=== PATIENT | male | born 1965 | race African-American/Black ===

== ENCOUNTER 2018-01-17 19:32 | Observation (INO) | payer OTHER ==
[2018-01-17] MEDS ORDERED: ONDANSETRON 4 MG/2 ML VIAL ONE (19:50)
[2018-01-17] MEDS ORDERED: Morphine 2 MG/2 ML SYR ONE (19:53)
[2018-01-17 20:36] LABS: Absolute Lymphocytes (CBC) 2.1 K/uL (0.7-4.9); Absolute Monocytes 0.5 K/uL (0.1-1.3); Absolute Neutrophil 4.4 K/uL (1.8-8.0); Basophils % 0.4 % (0-1.3); Eosinophils % 2.1 % (0-4.4); Hematocrit 37.6 % (39.6-49.0); Lymphocytes % 29.5 % (15.3-44.8); MCH 30.6 pg (27.0-35.0); MCV 91.9 fL (80-100); MPV 9.8 fL (7.6-11.3); Monocytes % 6.8 % (3.3-12.3); RBC Red Blood Cell Count 4.09 M/uL (4.33-5.43)
[2018-01-17 21:00] LABS: Protime INR 0.97
[2018-01-17 21:04] LABS: Bicarbonate 29 mEq/L (21-31); Glucose Level 168 mg/dL (65-120); Potassium 3.9 mEq/L (3.6-5.0); Sodium Level 132 mEq/L (135-145)
[2018-01-17 21:11] LABS: ALT/SGPT 11 IU/L (10-60); AST/SGOT 16 IU/L (10-42); Albumin 3.3 g/dL (3.2-5.5); Alkaline Phosphatase 39 IU/L (42-121); BUN Blood Urea Nitrogen 10 mg/dL (6-20); Bilirubin Direct 0.1 mg/dL (0-0.2); Bilirubin Total 0.4 mg/dL (0.3-1.2); Creatine Phosphokinase 188 IU/L (22-269); Magnesium 1.6 mg/dL (1.8-2.5); Protein, Total 5.9 g/dL (6.0-8.3)
[2018-01-17 21:13] LABS: CKMB Creatine Kinase MB 2.6 ng/ml (0.3-4.0)
--- NOTE | 2018-01-17 21:15 | RAD REPORT ---
EXAM DESCRIPTION: Te[facility] Single View01/17/2018 8:58 pm CLINICAL HISTORY: Chest pain COMPARISON: none FINDINGS: The lungs appear clear of acute infiltrate. The heart is upper limits normal size IMPRESSION: No acute abnormalities displayed
[2018-01-17] MEDS ORDERED: Magnesium Sulfate 2gm IVPB 2 G/50 ML BAG IV ONE (21:25)
[2018-01-17] MEDS ORDERED: ACETAMINOPHEN 500 MG TAB PO PRN (22:04)
[2018-01-17] MEDS ORDERED: ALPRAZOLAM 0.25 MG TABLET PO PRN (22:04)
[2018-01-17] MEDS ORDERED: MORPHINE 4 MG/ML SYR IV PRN (22:04)
--- NOTE | 2018-01-17 22:07 | EDPHYS ---
Physician Documentation [facility] Name: Erich Houser Jr Age: 52 yrs Sex: Male : 1965 Arrival Date: 01/17/2018 Time: 19:35 Bed 24 Private MD: ED Physician Dharmesh Zaldivar HPI: 01/17 19:45 This 52 yrs old Black Male presents to ER via EMS with complaints of Chest Pain > 30 cp y/o. 19:45 The patient or guardian reports chest pain that is located primarily in the anterior cp chest wall, left. Onset: "little while ago". The pain radiates to the left arm. The chest pain is described as sharp. 19:45 Associated signs and symptoms: Pertinent negatives: abdominal pain, cough, diaphoresis, cp lower extremity pain, lower extremity swelling. 19:45 Duration: The patient or guardian reports a single episode, that is still ongoing. cp Historical: - Allergies: 19:40 Hydrochlorothiazide; lk1 - PMHx: 19:40 CONSTIPATION - CHRONIC; Depression; Diabetes - NIDDM; FACET ARTHRITIS; gingivitis; lk1 Hypertension; IMPULSE CONTROL DISORDER; LEGG-PERTHES DS; MODERATE MR; SCHIZOTYPAL PERSONALITY DISORDER; Seizures; - Immunization history:: Adult Immunizations up to date. - Social history:: Smoking status: Patient/guardian denies using tobacco. ROS: 19:50 Constitutional: Negative for body aches, chills, fever, poor PO intake. cp 19:50 Eyes: Negative for injury, pain, redness, and discharge. cp 19:50 ENT: Negative for drainage from ear(s), ear pain, sore throat, difficulty swallowing, difficulty handling secretions. 19:50 Cardiovascular: Positive for chest pain, Negative for edema, palpitations. 19:50 Respiratory: Negative for cough, shortness of breath, wheezing. 19:50 Abdomen/GI: Negative for abdominal pain, vomiting, diarrhea, constipation, black/tarry stool, rectal bleeding. 19:50 Back: Negative for pain at rest, pain with movement, radiated pain. 19:50 Skin: Negative for cellulitis, rash. 19:50 Neuro: Negative for altered mental status, headache, weakness. 19:50 All other systems are negative. Exam: 20:00 Constitutional: The patient appears in no acute distress, alert, awake, cp non-diaphoretic, non-toxic, well developed, well nourished, obese. 20:00 Head/Face: Normocephalic, atraumatic. cp 20:00 Eyes: Pupils equal round and reactive to light, extra-ocular motions intact. Lids and lashes normal. Conjunctiva and sclera are non-icteric and not injected. Cornea within normal limits. Periorbital areas with no swelling, redness, or edema. ENT: Nares patent. No nasal discharge, no septal abnormalities noted. Tympanic membranes are normal and external auditory canals are clear. Oropharynx with no redness, swelling, or masses, exudates, or evidence of obstruction, uvula midline. Mucous membranes moist. Neck: Trachea midline, no thyromegaly or masses palpated, and no cervical lymphadenopathy. Supple, full range of motion without nuchal rigidity, or vertebral point tenderness. No Meningismus. Chest/axilla: Normal chest wall appearance and motion. Nontender with no deformity. No lesions are appreciated. 20:00 Cardiovascular: Rate: normal, Rhythm: regular, Pulses: Pulses are 2+ in right radial artery and left radial artery. Edema: is not appreciated, JVD: is not appreciated. 20:00 Respiratory: the patient does not display signs of respiratory distress, Respirations: normal, no use of accessory muscles, no retractions, no splinting, no tachypnea, labored breathing, is not present, Breath sounds: are clear throughout, no decreased breath sounds, no stridor, no wheezing. 20:00 Abdomen/GI: Inspection: obese Bowel sounds: active, all quadrants, Palpation: abdomen is soft and non-tender, in all quadrants, rebound tenderness, is not appreciated, voluntary guarding, is not appreciated, involuntary guarding, is not appreciated. 20:00 Back: pain, is absent, ROM is normal. 20:00 Skin: cellulitis, is not appreciated, no rash present. 20:00 Neuro: Orientation: to person, place \\T\\ time. Mentation: lucid, able to follow commands, Cerebellar function: is grossly normal, Motor: moves all fours, strength is normal. 21:59 ECG was reviewed by the Attending Physician. cp Vital Signs: 19:42 BP 146 / 80; Pulse 85; Resp 18; Temp 98.2(O); Pulse Ox 97% on R/A; Weight 86.64 kg (R); lk1 Pain 4/10; 20:30 BP 175 / 89; Pulse 76; Resp 18; Pulse Ox 95% on R/A; lk1 21:00 BP 167 / 71; Pulse 75; Resp 18; Pulse Ox 97% on R/A; lk1 21:30 BP 158 / 95; Pulse 76; Resp 18; Pulse Ox 95% on R/A; lk1 22:00 BP 159 / 85; Pulse 79; Resp 16; Pulse Ox 96% on R/A; lk1 22:30 BP 165 / 74; Pulse 81; Resp 16; Pulse Ox 94% on R/A; lk1 23:00 BP 170 / 77; Pulse 80; Resp 16; Pulse Ox 93% on R/A; lk1 23:48 BP 121 / 77; Pulse 78; Resp 16; Pulse Ox 95% on R/A; lk1 23:00 sleeping lk1 MDM: 19:38 Patient medically screened. 20:00 Differential diagnosis: abnormal EKG, acute myocardial infarction, gastroesophageal cp reflux disease (GERD), pulmonary embolus, stable angina, thoracic aortic disection, unstable angina. 21:00 The patient was not given aspirin in the Emergency Department. Administered by EMS. 21:35 Data reviewed: vital signs, nurses notes, lab test result(s), radiologic studies, plain cp films, and as a result, I will admit patient. 21:43 Physician consultation: Maria G Wright MD was called at 21:38, was contacted at 21:38, regarding admission, to the telemetry unit. patient's condition. 01/17 19:46 Order name: Basic Metabolic Panel; Complete Time: 21:22 cp 01/17 21:22 Interpretation: Normal except: NA 132; CL 100; GLUC 168. cp 01/17 19:46 Order name: BNP; Complete Time: 21:22 cp 01/17 19:46 Order name: CBC with Diff; Complete Time: 20:47 cp 01/17 20:47 Interpretation: Normal except: RBC 4.09; HGB 12.5; HCT 37.6; RDW 15.7. cp 01/17 19:46 Order name: Ckmb; Complete Time: 21:22 cp 01/17 19:46 Order name: CPK; Complete Time: 21:22 cp 01/17 19:46 Order name: LFT's; Complete Time: 21:22 cp 01/17 19:46 Order name: Magnesium; Complete Time: 21:22 cp 01/17 19:46 Order name: PT-INR; Complete Time: 21:22 cp 01/17 19:46 Order name: Ptt, Activated; Complete Time: 21:22 cp 01/17 19:46 Order name: Troponin (emerg Dept Use Only); Complete Time: 21:22 cp 01/17 22:07 Order name: Lipid Profile [facility] 01/17 22:07 Order name: Lipid Profile [facility] 01/17 22:07 Order name: Troponin I [facility] 01/17 22:07 Order name: Troponin I [facility] 01/17 19:46 Order name: XRAY Chest (1 view); Complete Time: 21:22 cp 01/17 19:46 Order name: EKG; Complete Time: 20:07 cp 01/17 19:46 Order name: Cardiac monitoring; Complete Time: 21:39 cp 01/17 19:46 Order name: EKG - Nurse/Tech; Complete Time: 00:07 cp 01/17 22:07 Order name: Echo with Doppler [facility] 01/17 22:07 Order name: Troponin I [facility] 01/17 22:07 Order name: EKG Electrocardiogram [facility] 01/17 22:07 Order name: EKG Electrocardiogram [facility] 01/17 22:07 Order name: EKG Electrocardiogram [facility] 01/17 22:07 Order name: EKG Electrocardiogram [facility] 01/17 23:58 Order name: Urine Dipstick--Ancillary (enter results) 1 01/17 19:46 Order name: IV Saline Lock; Complete Time: 21:39 cp 01/17 19:46 Order name: Labs collected and sent; Complete Time: 21:39 cp 01/17 19:46 Order name: O2 Per Protocol; Complete Time: 21:39 cp 01/17 19:46 Order name: O2 Sat Monitoring; Complete Time: 21:39 cp 01/17 19:46 Order name: Urine Dipstick-Ancillary (obtain specimen); Complete Time: 23:56 cp EC:59 Rate is 80 beats/min. Rhythm is regular. WI interval is normal. QRS interval is normal. cp QT interval is normal. No ST changes noted. Interpreted by me. Reviewed by me. Administered Medications: 20:26 Drug: Zofran 4 mg Route: IVP; Site: right antecubital; lk1 21:00 Follow up: Response: No adverse reaction; Marked relief of symptoms; Nausea is decreasedlk1 20:27 Drug: morphine 2 mg Route: IVP; Site: right antecubital; lk1 21:00 Follow up: Response: No adverse reaction; Marked relief of symptoms; Pain is decreased lk1 21:30 Drug: Magnesium Sulfate 2 grams Route: IVPB; Infused Over: 2 hrs; Site: right lk1 antecubital; 22:30 Follow up: Response: No adverse reaction; IV Status: Completed infusion lk1 23:00 Drug: Lovenox 40 mg Route: Sub-Q; Site: right lower abdomen; lk1 23:30 Follow up: Response: No adverse reaction lk1 23:00 Drug: Metoprolol 25 mg Route: PO; lk1 23:55 Follow up: Response: No adverse reaction; Blood pressure is lowered lk1 Disposition: 01/18 07:59 Co-signature as Attending Physician, Dharmesh Zaldivar MD I agree with the assessment and [facility] plan of care. Disposition: 01/17/18 22:06 Hospitalization ordered by Maria G Wright for Observation. Preliminary diagnosis is Chest pain, unspecified. - Bed requested for Telemetry/MedSurg (observation). - Status is Observation. lk1 - Condition is Stable. - Problem is new. - Symptoms have improved. UTI on Admission? No Signatures: Dispatcher [employer] EDSherley Madrid, Dharmesh Multani RN, MD MD cha Page, Corey, PA PA cp Kluge, Leah, RN RN lk1
--- NOTE | 2018-01-17 22:07 | ER ---
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 Transition of care: patient was not received from another setting of care. Onset of symptoms was January 17, 2018 at 19:00. Initial Sepsis Screen: Does the patient meet any 2 criteria? No. Patient's initial sepsis screen is negative. Does the patient have a suspected source of infection? No. Patient's initial sepsis screen is negative. Care prior to arrival: Medication(s) given: ASA, 325 mg, x 1, IV initiated. 20 GA, in the right antecubital area, Glucose check: 148. 19:37 Method Of Arrival: EMS: [facility] lk1 19:37 Acuity: JIGNESH 3 lk1 Triage Assessment: 19:40 General: Appears in no apparent distress. Behavior is calm, cooperative, appropriate lk1 for age. Pain: Complains of pain in chest Pain radiates to left arm Unable to use pain scale. Does not appear to understand pain scale. FLACC scale score is 4 out of 10. EENT: No signs and/or symptoms were reported regarding the EENT system. Neuro: Cardiovascular: Heart tones S1 S2 present Capillary refill is brisk Patient's skin is warm and dry. Respiratory: Airway is patent Respiratory effort is even, unlabored, Respiratory pattern is regular, symmetrical, Breath sounds are clear bilaterally. GI: Abdomen is round non-distended, Bowel sounds present X 4 quads. Patient currently denies diarrhea, nausea, vomiting. : No signs and/or symptoms were reported regarding the genitourinary system. Derm: No signs and/or symptoms reported regarding the dermatologic system. Musculoskeletal: No signs and/or symptoms reported regarding the musculoskeletal system. Historical: - Allergies: 19:40 Hydrochlorothiazide; lk1 - PMHx: 19:40 CONSTIPATION - CHRONIC; Depression; Diabetes - NIDDM; FACET ARTHRITIS; gingivitis; lk1 Hypertension; IMPULSE CONTROL DISORDER; LEGG-PERTHES DS; MODERATE MR; SCHIZOTYPAL PERSONALITY DISORDER; Seizures; - Immunization history:: Adult Immunizations up to date. - Social history:: Smoking status: Patient/guardian denies using tobacco. Screenin:18 Abuse screen: Denies threats or abuse. Denies injuries from another. Nutritional lk1 screening: No deficits noted. Tuberculosis screening: No symptoms or risk factors identified. Fall Risk Total Singh Fall Scale indicates Low Risk Score (25-44 pts). Fall prevention measures have been instituted. Side Rails Up X 2 Placed close to Nursing Station Frequent Obs/Assesments occuring Family Present and informed to notify staff if they need to leave bedside As available Patient and Family Educated on Fall Prevention Program and strategies. Assessment: 20:30 Reassessment: Patient and/or family updated on plan of care and expected duration. Pain lk1 level reassessed. Patient is alert, oriented x 3, equal unlabored respirations, skin warm/dry/pink. Patient states feeling better. Patient states symptoms have improved. Pain: Denies pain. 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 Vital Signs: 19:42 BP 146 / 80; Pulse 85; Resp 18; Temp 98.2(O); Pulse Ox 97% on R/A; Weight 86.64 kg (R); lk1 Pain 4/10; 20:30 BP 175 / 89; Pulse 76; Resp 18; Pulse Ox 95% on R/A; lk1 21:00 BP 167 / 71; Pulse 75; Resp 18; Pulse Ox 97% on R/A; lk1 21:30 BP 158 / 95; Pulse 76; Resp 18; Pulse Ox 95% on R/A; lk1 22:00 BP 159 / 85; Pulse 79; Resp 16; Pulse Ox 96% on R/A; lk1 22:30 BP 165 / 74; Pulse 81; Resp 16; Pulse Ox 94% on R/A; lk1 23:00 BP 170 / 77; Pulse 80; Resp 16; Pulse Ox 93% on R/A; lk1 23:48 BP 121 / 77; Pulse 78; Resp 16; Pulse Ox 95% on R/A; lk1 23:00 sleeping lk1 ED Course: 19:35 Patient arrived in ED. em1 19:36 Kristal Dyer, ELLIE is Primary Nurse. lk1 19:37 Dharmesh Munoz PA is PHCP. cp 19:37 Dharmesh Zaldivar MD is Attending Physician. cp 19:39 Triage completed. lk1 19:39 Maintain EMS IV. Dressing intact. Good blood return noted. Site clean \T\ dry. Gauge \T\ lk 1 site: 20G in right AC. 19:46 Arm band placed on right wrist. lk1 20:58 XRAY Chest (1 view) In Process Unspecified. EDMS 22:05 Maria G Wright MD is Hospitalizing Provider. cp 22:08 EKG done, by ED staff, reviewed by Dharmesh LE. dh3 23:58 No provider procedures requiring assistance completed. Patient admitted, IV remains in lk1 place. No redness/swelling at site. Patient maintains SpO2 saturation greater than 95% on room air. 01/18 00:00 Patient has correct armband on for positive identification. Placed in gown. Bed in low lk1 position. 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 Administered Medications: 01/17 20:26 Drug: Zofran 4 mg Route: IVP; Site: right antecubital; lk1 21:00 Follow up: Response: No adverse reaction; Marked relief of symptoms; Nausea is decreasedk1 20:27 Drug: morphine 2 mg Route: IVP; Site: right antecubital; lk1 21:00 Follow up: Response: No adverse reaction; Marked relief of symptoms; Pain is decreased lk1 21:30 Drug: Magnesium Sulfate 2 grams Route: IVPB; Infused Over: 2 hrs; Site: right lk1 antecubital; 22:30 Follow up: Response: No adverse reaction; IV Status: Completed infusion lk1 23:00 Drug: Lovenox 40 mg Route: Sub-Q; Site: right lower abdomen; lk1 23:30 Follow up: Response: No adverse reaction lk1 23:00 Drug: Metoprolol 25 mg Route: PO; lk1 23:55 Follow up: Response: No adverse reaction; Blood pressure is lowered lk1 Outcome: 22:06 Decision to Hospitalize by Provider. cp 23:58 Admitted to Med/surg accompanied by tech, via wheelchair, room 232, with chart, Report lk1 called to RN 23:58 Condition: good 23:58 Discharge instructions given to patient, significant other, Instructed on the need for admit, Demonstrated understanding of instructions. 01/18 00:07 Patient left the ED. lk1 Signatures: Dispatcher [employer] Haile Claudio em1 Dharmesh Munoz PA PA cp Kluge, Leah, RN RN lk1 Yoly Alarcon 3
[2018-01-17] MEDS ORDERED: METOPROLOL TAR 25 MG TAB ONE (23:11)
[2018-01-17] MEDS ORDERED: ENOXAPARIN 40 MG/0.4 ML SQ ONE (23:12)
[2018-01-18 00:15] LABS: Urine Blood NEGATIVE (NEG); Urine Glucose TRACE (NEG); Urine Protein NEGATIVE (NEG); Urine Specific Gravity 1.015 (1.005-1.030)
[2018-01-18] MEDS ORDERED: Morphine 2 MG/2 ML SYR IV PRN (07:18)
[2018-01-18] MEDS ORDERED: PNEUMOCOCCAL VACCINE 0.5 ML IMVAC ONE (08:00)
--- NOTE | 2018-01-18 08:56 | P.HP ---
Certification for Inpatient Patient admitted to: Observation With expected LOS: <2 Midnights Patient will require the following post-hospital care: None Practitioner: I am a practitioner with admitting privileges, knowledge of patient current condition, hospital course, and medical plan of care. Services: Services provided to patient in accordance with Admission requirements found in Title 42 Section 412.3 of the Code of Federal Regulations Patient History Date of Service: 01/17/18 Reason for admission: Chest pain History of Present Illness: Patient is a 52yo who was admitted to the hospital with chest pain that comes and goes. Patient has a learning disability. Patient is not able to give me much history. He does say he has been having chest pain which is sharp. There is no radiation. Patient was admitted to the hospital for further evaluation to be ruled out for acute coronary syndrome as he has many risk factors. Patient stays at a daycare call [facility]. Allergies hydrochlorothiazide Allergy (Unverified 01/16/16 00:13) Unknown Home Medications: Benztropine Mesylate 2 mg PO BID 01/18/18 Cholecalciferol (Vitamin D3) [Vitamin D3] 5,000 units PO DAILY 01/18/18 Divalproex Sodium [Depakote] 500 mg PO BID 01/18/18 Docusate [Colace Cap*] 100 mg PO DAILY 01/18/18 Doxycycline Hyclate [Targadox] 20 mg PO DAILY 01/18/18 Iloperidone [Fanapt] 8 mg PO BID 01/18/18 Lisinopril [Prinivil] 20 mg PO DAILY 01/18/18 Metformin ER [Glucophage ER*] 500 mg PO DAILY WITH BREAKFAST 01/18/18 Metoprolol Succinate [Toprol Xl*] 50 mg PO DAILY 01/18/18 Oxcarbazepine [Trileptal] 300 mg PO [id number] 01/18/18 Oxcarbazepine [Trileptal] 600 mg PO BEDTIME 01/18/18 Propranolol [Inderal*] 20 mg PO BID 01/18/18 Risperidone [Risperdal] 3 mg PO BID 01/18/18 Simvastatin 40 mg PO BEDTIME 01/18/18 - Past Medical/Surgical History Has patient received pneumonia vaccine in the past: No Diabetic: No -: Hypertension -: Diabetes type 2 -: Seizure disorder Past Surgical History: Patient denies surgical history - Family History Father History Unknown: Yes Notes: pt not good historian Mother History Unknown: Yes - Social History Smoking Status: Never smoker Alcohol use: No CD- Drugs: No Caffeine use: Yes Place of Residence: Home Review of Systems 10-point ROS is otherwise unremarkable Physical Examination - Vital Signs Temperature: 97.8 F Blood Pressure: 155/78 Pulse: 71 Respirations: 18 Pulse Ox (%): 95 - Physical Exam General: Alert, In no apparent distress, Oriented x3 HEENT: Atraumatic, PERRLA, Mucous membr. moist/pink, EOMI, Sclerae nonicteric Neck: Supple, 2+ carotid pulse no bruit, No LAD, Without JVD or thyroid abnormality Respiratory: Clear to auscultation bilaterally, Normal air movement Cardiovascular: Regular rate/rhythm, Normal S1 S2, No murmurs Gastrointestinal: Normal bowel sounds, Soft and benign, Non-distended, No tenderness Musculoskeletal: No clubbing, No swelling, No tenderness Integumentary: No rashes Neurological: Normal gait, Normal speech, Normal strength at 5/5 x4 extr, Normal tone, Sensation intact, Cranial nerves 3-12 intact, Normal affect Lymphatics: No axilla or inguinal lymphadenopathy - Studies Laboratory Data (last 24 hrs) 01/17/18 20:26: PT 11.4, INR 0.97, APTT 25.5 01/17/18 20:26: WBC 7.2, Hgb 12.5 L, Hct 37.6 L, Plt Count 210 01/17/18 20:26: B-Natriuretic Peptide 20 01/17/18 20:26: Sodium 132 L, Potassium 3.9, BUN 10, Creatinine 0.68, Glucose 168 H, Magnesium 1.6 L, Total Bilirubin 0.4, AST 16, ALT 11, Alkaline Phosphatase 39 L Assessment & Plan - Problems (Diagnosis) (1) Chest pain, rule out acute myocardial infarction Current Visit: Yes Status: Acute (2) Learning disability Current Visit: Yes Status: Acute (3) Diabetes type 2, controlled Current Visit: Yes Status: Acute (4) Hypertension Current Visit: Yes Status: Acute - Plan 1. Serial troponins and EKG 2. Cardiology consultation 3. Echocardiogram 4. Anti-platelet therapy, anti coagulation, beta-jean-pierre, statin, and O2 as needed 5. IV morphine for pain 6. Nitro p.r.n. Discharge Plan: Home Plan to discharge in: 24 Hours - Advance Directives Does patient have a Living Will: No Does patient have a Durable POA for Healthcare: No - Code Status/Comfort Care Code Status Assessed: Yes Code Status: Full Code Critical Care: No Time Spent Managing PTS Care (In Minutes): 45
[2018-01-18] MEDS ORDERED: METOPROLOL TAR 50 MG TAB PO SCH (09:00)
[2018-01-18] MEDS ORDERED: ENOXAPARIN 40 MG/0.4 ML SQ SCH (09:00)
[2018-01-18] MEDS ORDERED: ASPIRIN EC 81 MG TAB PO SCH (09:00)
[2018-01-18] MEDS ORDERED: LISINOPRIL 10 MG TAB PO SCH (09:00)
--- NOTE | 2018-01-18 13:06 | P.SSS ---
Patient History Date of Service: 01/18/18 Reason for admission: Chest pain History of Present Illness: Patient is a 52yo who was admitted to the hospital with chest pain that comes and goes. Patient has a learning disability. Patient is not able to give me much history. He does say he has been having chest pain which is sharp. There is no radiation. Patient was admitted to the hospital for further evaluation to be ruled out for acute coronary syndrome as he has many risk factors. Patient stays at a daycare call [facility]. Allergies hydrochlorothiazide Allergy (Unverified 01/16/16 00:13) Unknown Home Medications: Benztropine Mesylate 2 mg PO BID 01/18/18 Cholecalciferol (Vitamin D3) [Vitamin D3] 5,000 units PO DAILY 01/18/18 Divalproex Sodium [Depakote] 500 mg PO BID 01/18/18 Docusate [Colace Cap*] 100 mg PO DAILY 01/18/18 Doxycycline Hyclate [Targadox] 20 mg PO DAILY 01/18/18 Iloperidone [Fanapt] 8 mg PO BID 01/18/18 Lisinopril [Prinivil] 20 mg PO DAILY 01/18/18 Metformin ER [Glucophage ER*] 500 mg PO DAILY WITH BREAKFAST 01/18/18 Metoprolol Succinate [Toprol Xl*] 50 mg PO DAILY 01/18/18 Oxcarbazepine [Trileptal] 300 mg PO [id number] 01/18/18 Oxcarbazepine [Trileptal] 600 mg PO BEDTIME 01/18/18 Propranolol [Inderal*] 20 mg PO BID 01/18/18 Risperidone [Risperdal] 3 mg PO BID 01/18/18 Simvastatin 40 mg PO BEDTIME 01/18/18 - Past Medical/Surgical History Has patient received pneumonia vaccine in the past: No Diabetic: No -: Hypertension -: Diabetes type 2 -: Seizure disorder - Family History Father History Unknown: Yes Notes: pt not good historian Mother History Unknown: Yes - Social History Smoking Status: Never smoker Alcohol use: No CD- Drugs: No Caffeine use: Yes Place of Residence: Home Review of Systems General: As per HPI Physical Examination - Vital Signs Temperature: 97.8 F Blood Pressure: 177/110 Pulse: 101 Respirations: 18 Pulse Ox (%): 95 - Physical Exam General: Alert, In no apparent distress HEENT: Atraumatic Neck: Supple Respiratory: Clear to auscultation bilaterally, Normal air movement Cardiovascular: Regular rate/rhythm, Normal S1 S2 Gastrointestinal: Normal bowel sounds, No tenderness Musculoskeletal: No tenderness Integumentary: No rashes Neurological: Normal gait, Normal speech, Normal strength at 5/5 x4 extr, Normal tone, Normal affect Lymphatics: No axilla or inguinal lymphadenopathy - Studies Laboratory Data (last 24 hrs) 01/17/18 20:26: PT 11.4, INR 0.97, APTT 25.5 01/17/18 20:26: WBC 7.2, Hgb 12.5 L, Hct 37.6 L, Plt Count 210 01/17/18 20:26: B-Natriuretic Peptide 20 01/17/18 20:26: Sodium 132 L, Potassium 3.9, BUN 10, Creatinine 0.68, Glucose 168 H, Magnesium 1.6 L, Total Bilirubin 0.4, AST 16, ALT 11, Alkaline Phosphatase 39 L - Diagnosis (Problem(s)) (1) Chest pain, rule out acute myocardial infarction Onset Date: 01/18/18 Current Visit: Yes Status: Ruled-out Plan: Chest Pain. Troponin x 3 negative. ECHO WNL. -Cardiology consulted. [facility] medical mgmt. -DC home now (2) Diabetes type 2, controlled Onset Date: 01/18/18 Current Visit: Yes Status: Acute (3) Hypertension Onset Date: 01/18/18 Current Visit: Yes Status: Chronic Qualifiers: Hypertension type: essential hypertension Qualified Code(s): I10 - Essential (primary) hypertension (4) Learning disability Onset Date: 01/18/18 Current Visit: Yes Status: Chronic - Disposition Disposition: ROUTINE DISCHARGE Condition: GOOD Diet: Regular Activity: Ad zaid
--- NOTE | 2018-01-18 15:40 | EKG ---
Test Date: 2018-01-18 Test Time: 09:24:48 Assistant Professor Of Music: SYDNEY MEASUREMENT RESULTS: Intervals: Rate: 80 TN: 140 QRSD: 88 QT: 336 QTc: 387 [place]: P: 60 TN: 140 QRS: 47 T: 40 INTERPRETIVE STATEMENTS: Normal sinus rhythm Nonspecific T wave abnormality Abnormal ECG Compared to ECG 01/17/2018 21:53:51 No significant changes Electronically Signed On 01-18-18 15:37:43 CDT by Rex Silva
--- NOTE | 2018-01-18 15:41 | EKG ---
Test Date: 2018-01-17 Test Time: 21:53:51 Registered Massage Therapist: LEIDA MEASUREMENT RESULTS: Intervals: Rate: 80 MT: 142 QRSD: 90 QT: 352 QTc: 405 [place]: P: 58 MT: 142 QRS: 53 T: 69 INTERPRETIVE STATEMENTS: Normal sinus rhythm Nonspecific T wave abnormality Abnormal ECG Compared to ECG 07/13/2009 21:17:40 Myocardial infarct finding no longer present T-wave abnormality still present Electronically Signed On 01-18-18 15:37:54 CDT by Rex Silva
--- NOTE | 2018-01-18 16:37 | ECHO ---
HEIGHT: 5 ft 3 in WEIGHT: 214 lb 11.2 oz DATE OF STUDY: 01/18/[address]: Maria G Wright MD 2-DIMENSIONAL: YES M.MODE: YES DOPPLER: YES COLOR FLOW: YES TDS: PORTABLE: DEFINITY: BUBBLE STUDY: DIAGNOSIS: CHEST PAIN CARDIAC HISTORY: CATHERIZATION: NO SURGERY: NO PROSTHETIC VALVE: NO PACEMAKER: NO MEASUREMENTS (cm) DIASTOLIC (NORMALS) SYSTOLIC (NORMALS) IVSd 1.0 (0.6-1.2) LA Diam 3.5 (1.9-4.0) LVEF 59% LVIDd 4.2 (3.5-5.7) LVIDs 2.9 (2.0-3.5) %FS 31% LVPWd 0.9 (0.6-1.2) Ao Diam 3.0 (2.0-3.7) 2 DIMENSIONAL ASSESSMENT: RIGHT ATRIUM: NORMAL LEFT ATRIUM: NORMAL RIGHT VENTRICLE: NORMAL LEFT VENTRICLE: NORMAL TRICUSPID VALVE: NORMAL MITRAL VALVE: NORMAL PULMONIC VALVE: NORMAL AORTIC VALVE: NORMAL PERICARDIAL EFFUSION: NONE AORTIC ROOT: NORMAL LEFT VENTRICULAR WALL MOTION: NORMAL DOPPLER/COLOR FLOW: NORMAL COMMENTS: NORMAL 2-DIMENSIONAL ECHOCARDIOGRAM WITH DOPPLER. NO WALL MOTION ABNORMALITY. NO EFFUSION. TECHNOLOGIST: PANFILO AWAD
[2018-01-18] MEDS ORDERED: ATORVASTATIN 20 MG TAB PO SCH (21:00)
[2018-01-18] MEDS ORDERED: DIVALPROEX DR 500MG TAB PO SCH (21:00)
[2018-01-18] MEDS ORDERED: RISPERIDONE 1 MG TABLET PO SCH (21:00)
[2018-01-18] MEDS ORDERED: PROPRANOLOL HCL 40 MG TAB PO SCH (21:00)
[2018-01-18] MEDS ORDERED: ILOPERIDONE 8 MG PO SCH (21:00)
[2018-01-19] MEDS ORDERED: METOPROLOL XL 50 MG TAB PO SCH (09:00)
[2018-01-19] MEDS ORDERED: VITAMIN D 5,000 UNIT CAP PO SCH (09:00)
[2018-01-19] MEDS ORDERED: DOCUSATE NA 100 MG CAP PO SCH (09:00)
[2018-01-19] MEDS ORDERED: LISINOPRIL 20 MG TAB PO SCH (09:00)
--- NOTE | 2018-01-19 10:58 | CON ---
Date of Consultation: 01/18/2018 The patient admitted on 01/17/2018. I saw the patient on 01/18/2018. Reason For Consultation: Chest pain. Additional Admitting Physician: Dr. Hope. History Of Present Illness: Mr. Houser is a 52-year-old black male without any significant cardiac his tory. He has a history of schizophrenia, depression, seizure disorder, and diabetes. He came in wit h stabbing kind of chest pain over the left chest, worse with breathing, radiated to the back. No na usea, vomiting, diaphoresis, PND, orthopnea, pedal edema, palpitations, or syncope. By the time I sa w him, he had had a normal EKG, normal chest x-ray, normal troponin, CPKs and MBs. His blood glucose is 168 and mag was 1.6 and he was asymptomatic by the time I saw him. Echocardiography that was don e by the time I saw him showed normal wall motion without any effusion. He has a normal ejection fra ction. Past Medical History: As stated above. Allergies: HE IS ALLERGIC TO HYDROCHLOROTHIAZIDE. Review of Systems: Negative. Social History: Positive for schizophrenia and depression and seizure disorder. [facility] facility that handles [facility]. Denies any tobacco, alcohol, or drug abuse. Physical Examination: Vital Signs: Stable. He was afebrile. HEENT: Negative. Neck: Supple without any bruit, lymphadenopathy, JVD, or thyromegaly. Chest: Clear to auscultation and percussion. Cardiac: Reveals a regular rhythm and rate without any murmurs, gallops, or rubs. Abdomen: Benign. Extremities: Revealed no clubbing, cyanosis, or edema. Diagnostic Data: As stated earlier. Impression And Plan: Atypical chest pain, most likely pleuritic. Normal echocardiogram. Normal lab oratory evaluation, chest x-ray, and EKG. The patient is pain-free right now. I feel comfortable wi th him going home. If his symptoms reoccur, we can certainly consider doing a stress test at that po int. His diabetes is fairly well controlled. He is normotensive at this point. I will discuss the case further with Dr. Hope or his cross-cover. GERA/LUZ MARIA Voice ID: [id number] Report ID: [id number]
== END 2018-01-18 17:42 | disposition home or self-care (01) ==
LOC: ER 19:32 → ERHOLD 22:06 → 2ND 23:29
PROVIDERS: ADMIT Hospitalist; ATTEND Hospitalist
DX: R07.9 Chest pain, unspecified (principal); I10 Essential (primary) hypertension; E11.9 Type 2 diabetes mellitus without complications; G40.909 Epilepsy, unspecified, not intractable, without status epilepticus; F81.9 Developmental disorder of scholastic skills, unspecified
CPT/HCPCS: 36415; 71045; 80048; 80061; 80076; 81003; 82550; 82553; 83735; 83880; 84484; 85025; 85610; 85730; 90670; 93005; 93306; 96365; 96372; 96375; 99285; G0378; J1650; J2270; J2405; J3475

== ENCOUNTER 2018-10-07 14:23 | Emergency (ER) | payer OTHER ==
--- OUTSIDE RECORDS SUMMARY | 2018-10-07 14:25 | XMS REPORT ---
:1965 [facility] Address [address] [place] [address] Care Team Providers Name Role Phone Unavailable Unavailable Unavailable Problems This patient has no known problems. Allergies, Adverse Reactions, Alerts This patient has no known allergies or adverse reactions. Medications This patient has no known medications.
--- NOTE | 2018-10-07 15:54 | RAD REPORT ---
EXAM DESCRIPTION: RAD - Chest Single View - 10/07/2018 3:40 pm CLINICAL HISTORY: listlessness Chest pain. COMPARISON: Chest Single View dated 01/17/2018; Chest Single View dated 09/14/2017 FINDINGS: Portable technique limits examination quality. The lungs are grossly clear. The heart is normal in size. No displaced fractures. IMPRESSION: No acute intrathoracic process suspected.
[2018-10-07 16:15] LABS: Absolute Lymphocytes (CBC) 2.4 K/uL (0.7-4.9); Absolute Monocytes 0.8 K/uL (0.1-1.3); Absolute Neutrophil 5.6 K/uL (1.8-8.0); Basophils % 0.5 % (0-1.3); Hematocrit 39.9 % (39.6-49.0); Lymphocytes % 26.9 % (15.3-44.8); MPV 11.2 fL (7.6-11.3); Monocytes % 8.8 % (3.3-12.3); RBC Red Blood Cell Count 4.22 M/uL (4.33-5.43)
--- NOTE | 2018-10-07 16:15 | RAD REPORT ---
EXAM DESCRIPTION: CT - Head Brain Wo Cont - 10/07/2018 4:06 pm CLINICAL HISTORY: DECLINING STATE Drowsiness COMPARISON: Head Brain Wo Cont dated 09/14/2017 TECHNIQUE: All CT scans are performed using dose optimization technique as appropriate and may inclu de automated exposure control or mA/KV adjustment according to patient size. FINDINGS: No intracranial hemorrhage, hydrocephalus or extra-axial fluid collection.No areas of brai n edema or evidence of midline shift. Small mucous retention cyst in the left maxillary antrum. Otherwise, the paranasal sinuses and mastoi ds are clear. The calvarium is intact. IMPRESSION: No acute intracranial abnormality.
[2018-10-07] MEDS ORDERED: NA CHLORIDE 0.9% 1,000 ML ONE (16:28)
[2018-10-07 16:33] LABS: ALT/SGPT 15 U/L (12-78); AST/SGOT 14 U/L (15-37); Albumin 3.1 g/dL (3.4-5.0); Alkaline Phosphatase 51 U/L (45-117); BUN Blood Urea Nitrogen 8 mg/dL (7-18); Bicarbonate 32 mmol/L (21-32); Bilirubin Direct 0.1 mg/dL (0-0.2); Bilirubin Total 0.3 mg/dL (0.2-1.0); CKMB Creatine Kinase MB < 1.0 ng/mL (0.3-3.6); Creatine Phosphokinase 115 U/L (39-308); Glucose Level 88 mg/dL (74-106); Lipase 120 U/L (73-393); Potassium 3.7 mmol/L (3.5-5.1); Protein, Total 7.1 g/dL (6.4-8.2); Sodium Level 146 mmol/L (136-145)
[2018-10-07 17:06] LABS: Urine RBC NONE SEEN /HPF (NONE SEEN)
[2018-10-07 17:07] LABS: Urine Bacteria <20 /HPF (NONE SEEN); Urine Culture Reflex Order NOT NEEDED
[2018-10-07 17:48] LABS: Urine Blood NEGATIVE (NEG); Urine Glucose NEGATIVE (NEG); Urine Protein NEGATIVE (NEG); Urine pH 6.5 (5.0-7.0)
--- NOTE | 2018-10-07 18:26 | ER ---
Nurse's Notes [facility] Name: Erich Houser Jr Age: 52 yrs Sex: Male : 1965 Arrival Date: 10/07/2018 Time: 14:33 Bed 14 Private MD: Diagnosis: Malaise and fatigue Presentation: 10/07 14:20 Presenting complaint: EMS states: Pt. 52 yr. male vomited x 1 after eating a half rb1 sandwich at 1230. Pt. is lethargic, possible too much [place] was taken. Pt. is A \T\ O x 4, will answer questions when asked and then falls asleep. BS 121, BP, 144/98, P 88, T 98.1. Allergic to Hydrochlorothiazide. [facility] [place]. [facility] care: [facility]. Onset of symptoms was October 07, 2018. Risk Assessment: Do you want to hurt yourself or someone else? Patient reports no desire to harm self or others. Initial Sepsis Screen: Does the patient meet any 2 criteria? No. Patient's initial sepsis screen is negative. Does the patient have a suspected source of infection? No. Patient's initial sepsis screen is negative. Care prior to arrival: None. 14:20 Method Of Arrival: EMS: [facility] [place] [facility] rb1 14:20 Acuity: JIGNESH 3 rb1 Triage Assessment: 14:20 General: Appears in no apparent distress. comfortable, Behavior is drowsy, Denies rb1 fever, feeling ill. Pain: Denies pain. Neuro: Level of Consciousness is lethargic, Pt. will respond quickly when spoken to and answers questions appropriately. . Oriented to person, place, time, situation. Cardiovascular: Capillary refill < 3 seconds is brisk in bilateral fingers. Respiratory: Airway is patent Respiratory effort is even, unlabored, Respiratory pattern is regular, symmetrical. GI: No signs and/or symptoms were reported involving the gastrointestinal system. : No signs and/or symptoms were reported regarding the genitourinary system. Derm: Skin is dry, Skin is normal, Skin temperature is warm. Musculoskeletal: Range of motion: intact in all extremities. Historical: - Allergies: 14:20 Hydrochlorothiazide; rb1 - Home Meds: 14:20 Align 4 mg oral cap daily [Active]; benztropine 2 mg Oral tab 1 tab 3 times per day rb1 [Active]; bisacodyl 5 mg Oral TbEC 1 tab three times weekly - [Active]; 14:20 carvedilol 6.25 mg oral tab 1 tab 2 times per day [Active]; divalproex 250 mg Oral Tb24 rb1 1 tabs once daily [Active]; divalproex sod DR-500mg 500 mg 1 tab twice a day [Active]; DOXYCYLINE 20 mg 1 tab twice a day [Active]; Fanapt 12 mg oral tab 1 tab 2 times per day [Active]; lisinopril 20 mg oral tab 1 tab once daily [Active]; lithium carbonate 300 mg Oral tab 1 tab twice a day [Active]; metformin 500 mg Oral tab 1 tab daily [Active]; mometasone 50 mcg/actuation nasal spry 1 sprays once daily [Active]; Fiber Powder 28.3% 1 Teaspoon twice a day [Active]; oxcarbazepine 300 mg oral tab 1 tab Morning [Active]; risperidone 4 mg Oral TbDL 1 tab 2 times per day [Active]; simvastatin 40 mg Oral tab 1 tab once daily [Active]; propranolol 20 mg Oral tab 1 tab 3 times per day [Active]; Stool Softner 100 mg 1 cap daily [Active]; Vitamin D3 5,000 unit oral tab 1 cap daily [Active]; acetaminophen 325 mg Oral tab 2 tabs every 4 hours for Pain [Active]; Bismatrol 262 mg/15 mL oral susp 2 2 teaspoons PRN [Active]; diphenhydramine HCl 25 mg Oral cap 1 cap PRN [Active]; guaifenesin 100 mg/5 mL Oral liqd 10 mL every 4 hours [Active]; loratadine 10 mg oral tab 1 tab once daily [Active]; Milk of Magnesia 1200/15 ml Oral 10 mL once daily [Active]; polyethylene glycol 3350 17 GM miscellaneous powd 4 oz. three-four times a day [Active]; - PMHx: 14:20 CONSTIPATION - CHRONIC; Depression; Diabetes - NIDDM; FACET ARTHRITIS; gingivitis; rb1 Hypertension; IMPULSE CONTROL DISORDER; LEGG-PERTHES DS; MODERATE MR; SCHIZOTYPAL PERSONALITY DISORDER; Seizures; - Immunization history:: Adult Immunizations up to date. - Ebola Screening: : Patient negative for fever greater than or equal to 101.5 degrees Fahrenheit, and additional compatible Ebola Virus Disease symptoms. - Social history:: Smoking status: Patient/guardian denies using tobacco. Screenin:20 Abuse screen: Denies threats or abuse. Nutritional screening: No deficits noted. rb1 Tuberculosis screening: No symptoms or risk factors identified. Fall Risk None identified. Assessment: 14:20 General: See triage assessment. rb1 15:20 Reassessment: Patient appears in no apparent distress at this time. No changes from rb1 previously documented assessment. Concrete Fence Builder at bedside. 16:18 Reassessment: Patient appears in no apparent distress at this time. Patient and/or rb1 family updated on plan of care and expected duration. Pain level reassessed. Patient is alert, oriented x 3, equal unlabored respirations, skin warm/dry/pink. Patient denies pain at this time. 17:17 Reassessment: Patient appears in no apparent distress at this time. No changes from rb1 previously documented assessment. Concrete Fence Builder at bedside. 18:15 Reassessment: Patient appears in no apparent distress at this time. Patient and/or rb1 family updated on plan of care and expected duration. Pain level reassessed. Patient is alert, oriented x 3, equal unlabored respirations, skin warm/dry/pink. Pt. is more awake now. Patient denies pain at this time. Vital Signs: 14:20 BP 159 / 98; Pulse 80; Resp 20; Temp 98.0(TE); Pulse Ox 99% on R/A; Weight 94.35 kg; rb1 Height 5 ft. 2 in. (157.48 cm); Pain 0/10; 15:20 BP 151 / 97; Pulse 79; Resp 17; Pulse Ox 96% ; Pain 0/10; rb1 16:20 BP 157 / 99; Pulse 67; Resp 16; Pulse Ox 99% ; Pain 0/10; rb1 17:20 BP 166 / 97; Pulse 70; Resp 19; Pulse Ox 97% on R/A; rb1 18:20 BP 152 / 98; Pulse 67; Resp 17; Pulse Ox 99% on R/A; Pain 0/10; rb1 14:20 Body Mass Index 38.04 (94.35 kg, 157.48 cm) [facility] ED Course: 14:20 Arm band placed on right wrist. rb1 14:20 Patient has correct armband on for positive identification. Bed in low position. Call rb1 light in reach. Side rails up X2. Pulse ox on. NIBP on. 14:33 Patient arrived in ED. rb1 15:02 Jaqui Gaviria [facility]-C [facility]. snw 15:02 Leonard Holland MD is Attending Physician. snw 15:06 Triage completed. rb1 15:11 Rekha Marcum, RN is Primary Nurse. rb1 15:40 Chest Single View XRAY In Process Unspecified. EDMS 15:43 Radiology exam delayed due to NURSE HAVING TO START IV/GET BLOOD ETC. BB TO CALL WHEN PTS IS READY. 15:45 Inserted saline lock: 22 gauge in right antecubital area, using aseptic technique. rb1 Blood collected. 16:07 CT Head Brain wo Cont In Process Unspecified. EDMS 18:57 No provider procedures requiring assistance completed. rb1 18:57 IV discontinued, intact, bleeding controlled, No redness/swelling at site. Pressure rb1 dressing applied. Administered Medications: 16:27 Drug: NS 0.9% 1000 ml Route: IV; Rate: 125 ml/hr; Site: right antecubital; rb1 Point of Care Testing: Blood Glucose: 16:27 Blood Glucose: 96 mg/dL; rb1 Ranges: Outcome: 18:25 Discharge ordered by MD. snw 18:57 Patient left the ED. rb1 18:57 Discharged to home via wheelchair, with geriatrics physician rb1 18:57 Condition: stable 18:57 Discharge instructions given to geriatrics physician, Instructed on discharge instructions, follow up and referral plans. Demonstrated understanding of instructions, follow-up care, Prescriptions given X none Signatures: Dispatcher [employer] EDME Jaqui Gaviria FNP-C MANUFACTURING ACCOUNTANT-Csnw Christine Enrique Rekha Marcum, RN RN rb1 Corrections: (The following items were deleted from the chart) 15:11 14:20 Immunization history: Adult Immunizations rb1 rb1 18:39 18:30 BP 152 / 98; Pulse 67bpm; Resp 17bpm; Pulse Ox 99% RA; Pain 0/10; rb1 rb1
--- NOTE | 2018-10-07 18:26 | EDPHYS ---
Physician Documentation [facility] Name: Erich Houser Jr Age: 52 yrs Sex: Male : 1965 Arrival Date: 10/07/2018 Time: 14:33 Bed 14 Private MD: ED Physician Leonard Holland HPI: 10/07 15:59 This 52 yrs old Black Male presents to ER via EMS with complaints of Lethargic. snw 15:59 The patient presents with decreased responsiveness. Onset: The symptoms/episode snw began/occurred suddenly, today. Possible causes: unknown. Associated signs and symptoms: Pertinent positives: vomiting, x 1. Current symptoms: In the emergency department the patient's symptoms are unchanged from the initial presentation. Patient's baseline: IDD. The patient has not experienced similar symptoms in the past. It is unknown whether or not the patient has recently seen a physician. pt started on [place] a few months ago, levels drawn in Aug. Unknown results. Historical: - Allergies: 14:20 Hydrochlorothiazide; rb1 - Home Meds: 14:20 Align 4 mg oral cap daily [Active]; benztropine 2 mg Oral tab 1 tab 3 times per day rb1 [Active]; bisacodyl 5 mg Oral TbEC 1 tab three times weekly [Active]; 14:20 carvedilol 6.25 mg oral tab 1 tab 2 times per day [Active]; divalproex 250 mg Oral Tb24 rb1 1 tabs once daily [Active]; divalproex sod DR-500mg 500 mg 1 tab twice a day [Active]; DOXYCYLINE 20 mg 1 tab twice a day [Active]; Fanapt 12 mg oral tab 1 tab 2 times per day [Active]; lisinopril 20 mg oral tab 1 tab once daily [Active]; lithium carbonate 300 mg Oral tab 1 tab twice a day [Active]; metformin 500 mg Oral tab 1 tab daily [Active]; mometasone 50 mcg/actuation nasal spry 1 sprays once daily [Active]; Fiber Powder 28.3% 1 Teaspoon twice a day [Active]; oxcarbazepine 300 mg oral tab 1 tab Morning [Active]; risperidone 4 mg Oral TbDL 1 tab 2 times per day [Active]; simvastatin 40 mg Oral tab 1 tab once daily [Active]; propranolol 20 mg Oral tab 1 tab 3 times per day [Active]; Stool Softner 100 mg 1 cap daily [Active]; Vitamin D3 5,000 unit oral tab 1 cap daily [Active]; acetaminophen 325 mg Oral tab 2 tabs every 4 hours for Pain [Active]; Bismatrol 262 mg/15 mL oral susp 2 2 teaspoons PRN [Active]; diphenhydramine HCl 25 mg Oral cap 1 cap PRN [Active]; guaifenesin 100 mg/5 mL Oral liqd 10 mL every 4 hours [Active]; loratadine 10 mg oral tab 1 tab once daily [Active]; Milk of Magnesia 1200/15 ml Oral 10 mL once daily [Active]; polyethylene glycol 3350 17 GM miscellaneous powd 4 oz. three-four times a day [Active]; - PMHx: 14:20 CONSTIPATION - CHRONIC; Depression; Diabetes - NIDDM; FACET ARTHRITIS; gingivitis; rb1 Hypertension; IMPULSE CONTROL DISORDER; LEGG-PERTHES DS; MODERATE MR; SCHIZOTYPAL PERSONALITY DISORDER; Seizures; - Immunization history:: Adult Immunizations up to date. - Ebola Screening: : Patient negative for fever greater than or equal to 101.5 degrees Fahrenheit, and additional compatible Ebola Virus Disease symptoms. - Social history:: Smoking status: Patient/guardian denies using tobacco. ROS: 15:58 Eyes: Negative for injury, pain, redness, and discharge, ENT: Negative for injury, snw pain, and discharge, Neck: Negative for injury, pain, and swelling, Cardiovascular: Negative for chest pain, palpitations, and edema, Respiratory: Negative for shortness of breath, cough, wheezing, and pleuritic chest pain. 15:58 Back: Negative for injury and pain, : Negative for injury, bleeding, discharge, and swelling, MS/Extremity: Negative for injury and deformity, Skin: Negative for injury, rash, and discoloration, Neuro: Negative for headache, weakness, numbness, tingling, and seizure. 15:58 Constitutional: Positive for somnolence. 15:58 Abdomen/GI: Positive for vomiting, x 1. Exam: 15:55 Head/Face: Normocephalic, atraumatic. Eyes: Pupils equal round and reactive to light, snw extra-ocular motions intact. Lids and lashes normal. Conjunctiva and sclera are non-icteric and not injected. Cornea within normal limits. Periorbital areas with no swelling, redness, or edema. ENT: Nares patent. No nasal discharge, no septal abnormalities noted. Tympanic membranes are normal and external auditory canals are clear. Oropharynx with no redness, swelling, or masses, exudates, or evidence of obstruction, uvula midline. Mucous membranes moist. Neck: Trachea midline, no thyromegaly or masses palpated, and no cervical lymphadenopathy. Supple, full range of motion without nuchal rigidity, or vertebral point tenderness. No Meningismus. Chest/axilla: Normal chest wall appearance and motion. Nontender with no deformity. No lesions are appreciated. Cardiovascular: Regular rate and rhythm with a normal S1 and S2. No gallops, murmurs, or rubs. Normal PMI, no JVD. No pulse deficits. Respiratory: Lungs have equal breath sounds bilaterally, clear to auscultation and percussion. No rales, rhonchi or wheezes noted. No increased work of breathing, no retractions or nasal flaring. Abdomen/GI: Soft, non-tender, with normal bowel sounds. No distension or tympany. No guarding or rebound. No evidence of tenderness throughout. Back: No spinal tenderness. No costovertebral tenderness. Full range of motion. 15:55 Constitutional: The patient appears listless, microcephalic pt who is more somnolent than his norm. Pt awakens easily but immediately returns to sleep. 15:55 Skin: Appearance: Color: normal in color, Temperature: warm, Moisture: dry. 15:55 Neuro: Orientation: to person, place, time, Mentation: no changes per helper, Memory: unable to test, Cranial nerves: hs of IDD, Gait: not tested. seizure activity, is not displayed by the patient, Abnormal movements: there are no abnormal movements. Vital Signs: 14:20 BP 159 / 98; Pulse 80; Resp 20; Temp 98.0(TE); Pulse Ox 99% on R/A; Weight 94.35 kg; rb1 Height 5 ft. 2 in. (157.48 cm); Pain 0/10; 15:20 BP 151 / 97; Pulse 79; Resp 17; Pulse Ox 96% ; Pain 0/10; rb1 16:20 BP 157 / 99; Pulse 67; Resp 16; Pulse Ox 99% ; Pain 0/10; rb1 17:20 BP 166 / 97; Pulse 70; Resp 19; Pulse Ox 97% on R/A; rb1 18:20 BP 152 / 98; Pulse 67; Resp 17; Pulse Ox 99% on R/A; Pain 0/10; rb1 14:20 Body Mass Index 38.04 (94.35 kg, 157.48 cm) rb1 MDM: 15:09 Patient medically screened. snw 18:26 Data reviewed: vital signs, nurses notes. Data interpreted: Pulse oximetry: on room air snw is 96 %. Interpretation: acceptable. Counseling: I had a detailed discussion with the patient and/or guardian regarding: the historical points, exam findings, and any diagnostic results supporting the discharge/admit diagnosis, the presence of at least one elevated blood pressure reading (>120/80) during this emergency department visit, lab results, radiology results, the need for outpatient follow up, to return to the emergency department if symptoms worsen or persist or if there are any questions or concerns that arise at home. Special discussion: I have referred the patient to see his PCP for further evaluation of high blood pressure. Based on the history and exam findings, there is no indication for further emergent testing or inpatient evaluation. I discussed with the patient/guardian the need to see the primary care provider for further evaluation of the symptoms. 10/07 15:19 Order name: T\T\S [facility] 10/07 15:19 Order name: Basic Metabolic Panel formerly [facility] 10/07 15:19 Order name: Blood Culture Adult (2) formerly [facility] 10/07 15:19 Order name: CBC with Diff [facility] 10/07 15:19 Order name: Ckmb [facility] 10/07 15:19 Order name: CPK; Complete Time: 16:37 [facility] 10/07 15:19 Order name: Lactate; Complete Time: 16:57 [facility] 10/07 15:19 Order name: LFT's; Complete Time: 16:37 [facility] 10/07 15:19 Order name: Lipase; Complete Time: 16:37 [facility] 10/07 15:19 Order name: Procalcitonin; Complete Time: 17:15 [facility] 10/07 15:19 Order name: Urine Microscopic Only; Complete Time: 17:09 [facility] 10/07 15:19 Order name: [place]; Complete Time: 16:57 [facility] 10/07 15:19 Order name: Valproic Acid (depakote); Complete Time: 16:37 sn 10/07 15:20 Order name: Type and Screen; Complete Time: 16:57 [facility] 10/07 15:19 Order name: Chest Single View XRAY; Complete Time: 15:55 snw 10/07 15:19 Order name: Accucheck; Complete Time: 16:49 snw 10/07 15:19 Order name: Cardiac monitoring; Complete Time: 16:02 w 10/07 15:19 Order name: EKG - Nurse/Tech; Complete Time: 18:05 snw 10/07 15:19 Order name: IV Saline Lock - Large Bore; Complete Time: 16:02 [facility] 10/07 15:19 Order name: Labs collected and sent; Complete Time: 16:02 [facility] 10/07 15:19 Order name: O2 Per Protocol; Complete Time: 16:02 w 10/07 15:19 Order name: O2 Sat Monitoring; Complete Time: 16:02 [facility] 10/07 15:19 Order name: CT Head Brain wo Cont; Complete Time: 16:37 w 10/07 15:20 Order name: Basic Metabolic Panel; Complete Time: 16:37 [facility] 10/07 15:20 Order name: Blood Culture [facility] 10/07 15:20 Order name: CBC with Automated Diff; Complete Time: 16:37 [facility] 10/07 15:20 Order name: CKMB Creatine Kinase MB; Complete Time: 16:37 [facility] 10/07 16:51 Order name: ABO/RH no charge; Complete Time: 16:57 [facility] 10/07 16:52 Order name: Urine Dipstick--Ancillary (enter results); Complete Time: 17:54 10/07 15:19 Order name: Urine Dipstick-Ancillary (obtain specimen); Complete Time: 18:29 snw Administered Medications: 16:27 Drug: NS 0.9% 1000 ml Route: IV; Rate: 125 ml/hr; Site: right antecubital; rb1 Point of Care Testing: Blood Glucose: 16:27 Blood Glucose: 96 mg/dL; rb1 Ranges: Critical Glucose Levels:Adult <50 mg/dl or >400 mg/dl <40 mg/dl or >180 mg/dl Disposition: 10/07/18 18:25 Discharged to Home. Impression: Malaise and fatigue. - Condition is Stable. - Discharge Instructions: Hypertension, Fatigue. - Medication Reconciliation Form, Thank You Letter, Antibiotic Education, Prescription Opioid Use form. - Follow up: Private Physician; When: 2 - 3 days; Reason: Recheck today's complaints, Continuance of care, Re-evaluation by your physician. Follow up: Emergency Department; When: As needed; Reason: Worsening of condition. Addendum: 10/09/2018 10:28 Co-signature as Attending Physician, Leonard Holland MD. g s Signatures: Dispatcher [employer] EDMS Jaqui Gaviria, BASKETBALL COMMENTATOR-C BASKETBALL COMMENTATOR-Csnw Rekha Marcum, RN RN rb1 Leonard Holland MD MD Corrections: (The following items were deleted from the chart) 10/07 15:11 14:20 Immunization history: Adult Immunizations rb1 rb1 18:57 18:25 10/07/2018 18:25 Discharged to Home. Impression: Malaise and fatigue. Condition rb1 is Stable. Forms are Medication Reconciliation Form, Thank You Letter, Antibiotic Education, Prescription Opioid Use. Follow up: Private Physician; When: 2 - 3 days; Reason: Recheck today's complaints, Continuance of care, Re-evaluation by your physician. Follow up: Emergency Department; When: As needed; Reason: Worsening of condition. snw
--- NOTE | 2018-10-08 12:00 | EKG ---
Test Date: 2018-10-07 Test Time: 17:11:42 Corn Crop Supervisor: JOHN MEASUREMENT RESULTS: Intervals: Rate: 71 OH: 132 QRSD: 86 QT: 332 QTc: 360 [place]: P: 59 OH: 132 QRS: 47 T: 34 INTERPRETIVE STATEMENTS: Normal sinus rhythm Nonspecific T wave abnormality Abnormal ECG Compared to ECG 01/18/2018 09:24:48 No significant changes Electronically Signed On 10-08-18 11:59:47 DEPUTY DIRECTOR by Romaine Dennison
== END 2018-10-07 18:57 | disposition home or self-care (01) ==
LOC: ER 14:23
DX: R53.81 Other malaise (principal); R53.83 Other fatigue; I10 Essential (primary) hypertension; E11.9 Type 2 diabetes mellitus without complications; F32.9 Major depressive disorder, single episode, unspecified; F60.1 Schizoid personality disorder; F22 Delusional disorders; G40.909 Epilepsy, unspecified, not intractable, without status epilepticus; Z88.8 Allergy status to other drugs, medicaments and biological substances
CPT/HCPCS: 36415; 70450; 71045; 80048; 80076; 80164; 80178; 81003; 81015; 82550; 82553; 82962; 83605; 83690; 84145; 85025; 86850; 86900; 86901; 87040; 93005; 99284; J7030

== ENCOUNTER 2020-07-29 15:31 | Inpatient (IN) | payer OTHER ==
--- OUTSIDE RECORDS SUMMARY | 2020-07-29 15:34 | XMS REPORT | Summary of Care ---
:1965 Author Organization [facility] Address [address] [place] [address] Care Team Providers Name Role Phone Camelia Alexander MD Primary Care Provider Reason for Visit Reason Comments Results covid 19 Encounter Details Date Type Department Care Team Description 07/29/2020 Telephone ACCESS CENTER [facility] Results (covid 19) [address] [place] [address] Covid Testing ([place] [address] Allergies No Known Allergiesdocumented as of this encounter (statuses as of 07/29/2020) Medications No known medicationsdocumented as of this encounter (statuses as of 07/29/2020) Active Problems No known active problemsdocumented as of this encounter (statuses as of 07/29/2020) Social History Tobacco Use Types Packs/Day Years Used Date Never Assessed Sex Assigned at Date Recorded Not on file COVID-19 Exposure Response Date Recorded In the last month, have you been in contact with No / Unsure 07/27/2020 4:31 PM 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 documented as of this encounter Last Filed Vital Signs Not on filedocumented in this encounter Miscellaneous Notes Telephone Encounter - Cally Mcallister, RN - 07/29/2020 11:53 AM [id number] Called Rosa. Person named Agapito answered phone and states results were already received. No further concerns verbalized. [facility] Access Center ANDREW Spear, RN-BC RPRISE DATA ARCHITECT Telephone Encounter - Daisy Bae - 07/29/2020 10:54 AM Suzette Houser is a 54 year old male. Patient is a resident at the [facility] facility. Patient's animal laboratory helper is Rosa. Rosa is calling for patient's covid-19 results. She oversees the care of two other patients needing their results as well. Please contact Rosa at [phone] (office number) or [phone] (mobile). documented in this encounter Plan of Treatment Health Maintenance Due Date Last Done Comments Depression Screening 1979 DTaP,Tdap,and Td Vaccines (1 - 1986 Tdap) COLON CANCER SCREENING ANNUAL 2017 FIT/FOBT COLON CANCER SCREENING FIT DNA 2017 EVERY 3 YEARS COLON CANCER SCREENING 2017 SIGMOIDOSCOPY EVERY 5 YEARS COLONOSCOPY 2017 Colorectal Cancer Screening 2017 Zoster Recombinant Vaccine 2017 (SHINGRIX) (1 of 2) INFLUENZA VACCINE (#1) 2020 PNEUMOCOCCAL 0-64 YEARS COMBINED Aged Out No longer eligible based on SERIES patient's age to complete this topic documented as of this encounter Results Not on filedocumented in this encounter Additional Health Concerns Infection Onset Date Last Indicated Resolved Time COVID-19 Confirmed 07/27/2020 07/27/2020 documented as of this encounter Insurance Payer Benefit Plan Subscriber ID Effective Phone Address Typ e / Group Dates [facility] [id number] 2015-Lamar Medic aid HEALTHCARE COMM STAR PLUS nt PLAN - MANAGED MEDICAID [place] MEDICAID OF [id number] 2018-Lamar [phone] Med icaid [place] [id number] [place] [address] documented as of this encounter
--- OUTSIDE RECORDS SUMMARY | 2020-07-29 15:34 | XMS REPORT | Summary of Care ---
:1965 Author Organization [facility] Address [address] [place] [id number] Care Team Providers Name Role Phone Cameila Alexander MD Primary Care Provider Reason for Visit Reason Comments LAB covid testing- exposure Encounter Details Date Type Department Care Team Description 07/27/2020 Laboratory Only [facility] Family FlowerJulianne, INDUSTRIAL RECRUITER [address] [place] [phone] Contact with or Medicine - [facility], [facility] Fam Pob I exposure to viral [address] [place] [address] disease (P rimary Dx) [place] [address] Allergies No Known Allergiesdocumented as of this encounter (statuses as of 07/27/2020) Medications No known medicationsdocumented as of this encounter (statuses as of 07/27/2020) Active Problems No known active problemsdocumented as of this encounter (statuses as of 07/27/2020) Social History Tobacco Use Types Packs/Day Years Used Date Never Assessed Sex Assigned at Date Recorded Not on file COVID-19 Exposure Response Date Recorded In the last month, have you been in contact with No / Unsure 07/27/2020 4:31 PM MENTAL TELEPATHIST someone who was confirmed or suspected to have Coronavirus / COVID-19? documented as of this encounter Last Filed Vital Signs Not on filedocumented in this encounter Nursing Notes Lucie Soler MA - 07/27/2020 4:00 PM CSTErich Houser is a 54 year old male here for COVID Screening with a Nasopharyngeal Swab All droplet and contact precautions taken with appropriate PPE worn while interacting with patient. ? Goggles ? N95 Mask ? Gloves ? Gown Patient educated on plan of care for visit, swabbing technique, risks and benefits of test and length of time to receive results. Verbal consent obtained to perform test. CDC Fact Sheet for Patients nCoV Diagnostic Panel dated 12/08/2019 and Factsheet What to Do if Sick with COVID 19 11/18/19 provided. Patient swabbed per appropriate nasopharyngeal technique, and patient tolerated well. Patient was discharged from the testing clinic in stable condition. Lucie Marley MA 07/27/2020 4:32 PM Bilate nares swabbed during COVID19 nasopharyngeal swab. AL TELEPATHIST documented in this encounter Plan of Treatment Name Type Priority Associated Diagnoses Order S chedule COVID-19 ([facility] Routine Contact with or exposure Expected: 07/27/2020, TESTING) to viral disease Expires: Health Maintenance Due Date Last Done Comments Depression Screening 1979 DTaP,Tdap,and Td Vaccines ( - 1986 Tdap) COLON CANCER SCREENING ANNUAL [...] Results Not on filedocumented in this encounter Visit Diagnoses Diagnosis Contact with or exposure to viral diseas e - Primary Contact with or exposure to other viral diseases documented in this encounter Additional Health Concerns Infection Onset Date Last Indicated Resolved Time COVID-19 Rule Out 07/27/2020 07/27/2020 documented as of this encounter Insurance Payer Benefit Plan / Subscriber ID Effective Dates Phone Addre ss Type Group [facility] [id number] 2015-Present Medicaid COMM PLAN - PLUS MANAGED MEDICAID documented as of this encounter
--- OUTSIDE RECORDS SUMMARY | 2020-07-29 15:34 | XMS REPORT | Continuity of Care Document ---
:1965 Author Organization [facility] t Address [address] [place] [address] Care Team Providers Name Role Phone District), [facility] Testing (Not Health Attending Clinician Lab, Fam Pob I Attending Clinician Unavailable Problems This patient has no known problems. Allergies, Adverse Reactions, Alerts This patient has no known allergies or adverse reactions. Medications This patient has no known medications. Procedures This patient has no known procedures. Encounters Start End Encounter Admission Attending Care Care Encounter Source Date/Time Date/Time Type Type Clinicians Facility Department ID 2020-07-29 2020-07-29 Telephone District)CHRI[facility]INE [id number] 00:00:00 00:00:00 [facility] [id number] [facility] [id number] Testing [id number] (Not Health 019 2020-07-27 2020-07-27 Laboratory Lab, [facility] [id number] 16:08:25 16:28:25 Only Fam Pob I Health [id number] [place] [id number] [facility] [phone] [address]al [address] Results This patient has no known results.
--- NOTE | 2020-07-29 16:42 | RAD REPORT ---
EXAM DESCRIPTION: CT - Head Brain Wo Cont - 07/29/2020 4:36 pm CLINICAL HISTORY: MENTAL STATUS CHANGE Headache, drowsiness COMPARISON: Head Brain Wo Cont dated 10/07/2018; Head Brain Wo Cont dated 09/14/2017 TECHNIQUE: All CT scans are performed using dose optimization technique as appropriate and may inclu de automated exposure control or mA/KV adjustment according to patient size. FINDINGS: No intracranial hemorrhage, hydrocephalus or extra-axial fluid collection.Moderate general ized brain atrophy is present.No areas of brain edema or evidence of midline shift. Moderate mucoperiosteal thickening of the left maxillary antrum. The paranasal sinuses and mastoids a re otherwise clear. The calvarium is intact. IMPRESSION: No acute intracranial abnormality.
[2020-07-29 16:49] LABS: Absolute Lymphocytes (CBC) 0.9 K/uL (0.7-4.9); Basophils % 0.3 % (0-1.3); Hematocrit 39.4 % (39.6-49.0); Lymphocytes % 12.3 % (15.3-44.8); MPV 9.4 fL (7.6-11.3); RBC Red Blood Cell Count 4.22 M/uL (4.33-5.43)
[2020-07-29 16:50] LABS: Protime INR 1.03
[2020-07-29 17:24] LABS: ALT/SGPT 12 U/L (12-78); AST/SGOT 20 U/L (15-37); Albumin 3.4 g/dL (3.4-5.0); Alkaline Phosphatase 41 U/L (45-117); BUN Blood Urea Nitrogen 13 mg/dL (7-18); Bicarbonate 30 mmol/L (21-32); Bilirubin Direct 0.1 mg/dL (0-0.2); Bilirubin Total 0.3 mg/dL (0.2-1.0); Glucose Level 104 mg/dL (74-106); NT PRO-BNP 176 pg/mL (<125); Potassium 4.2 mmol/L (3.5-5.1); Protein, Total 7.5 g/dL (6.4-8.2); Sodium Level 136 mmol/L (136-145); Troponin (Emerg Dept Use Only) < 0.02 ng/mL (0.0-0.045)
--- NOTE | 2020-07-29 17:29 | RAD REPORT ---
EXAM DESCRIPTION: RAD - Chest Single View - 07/29/2020 4:59 pm CLINICAL HISTORY: AMS Chest pain. COMPARISON: Chest Single View dated 10/07/2018; Chest Single View dated 01/17/2018; Chest Single View dated 09/14/2017; CHEST SINGLE VIEW dated 07/13/2009 FINDINGS: Portable technique limits examination quality. The lungs are grossly clear. The heart is normal in size. No displaced fractures. IMPRESSION: No acute intrathoracic process suspected.
[2020-07-29] MEDS ORDERED: NA CHLORIDE 0.9% 1,000 ML ONE ×3 (18:35→21:46)
--- NOTE | 2020-07-29 18:48 | ER ---
Nurse's Notes [facility] Name: Erich Houser Jr Age: 54 yrs Sex: Male : 1965 Arrival Date: 07/29/2020 Time: 15:33 Bed 20 Private MD: Diagnosis: Altered mental status, unspecified;Poisoning by other drugs, medicaments and biological substances, undetermined-Depakote Presentation: 07/29 15:34 Chief complaint: EMS states: [facility] STATES PT LETHARGIC 2/2 COVID. Coronavirus bp screen: Client presents with at least one sign or symptom that may indicate coronavirus-19. Standard/surgical mask placed on the client. Provider contacted for isolation considerations. Client reports previous positive COVID test result. Ebola Screen: No symptoms or risks identified at this time. Initial Sepsis Screen: Does the patient meet any 2 criteria? No. Patient's initial sepsis screen is negative. Does the patient have a suspected source of infection? Yes: Productive cough/pneumonia. Risk Assessment: Do you want to hurt yourself or someone else? Patient reports no desire to harm self or others. Onset of symptoms is unknown. 15:34 Acuity: JIGNESH 3 bp 15:34 Method Of Arrival: EMS: [facility] bp Triage Assessment: 15:35 General: Appears in no apparent distress. comfortable, obese, Behavior is drowsy. Pain: bp Denies pain. EENT: No deficits noted. Neuro: AT BASELINE. Cardiovascular: No deficits noted. Respiratory: No deficits noted. GI: No signs and/or symptoms were reported involving the gastrointestinal system. : No signs and/or symptoms were reported regarding the genitourinary system. Derm: No deficits noted. Musculoskeletal: No deficits noted. Historical: - Allergies: 15:43 Hydrochlorothiazide; bp - Home Meds: 15:43 Align 4 mg Oral cap daily [Active]; benztropine 2 mg Oral tab 1 tab 3 times per day bp [Active]; bisacodyl 5 mg Oral TbEC 1 tab three times weekly - [Active]; carvedilol 6.25 mg Oral tab 1 tab 2 times per day [Active]; divalproex 250 mg Oral Tb24 1 tabs once daily [Active]; divalproex sod DR-500mg 500 mg 1 tab twice a day [Active]; DOXYCYLINE 20 mg 1 tab twice a day [Active]; Fanapt 12 mg Oral tab 1 tab 2 times per day [Active]; loxapine succinate 25 mg Oral cap 1 cap every morning [Active]; metformin 500 mg Oral tab 1 tab daily [Active]; mometasone 50 mcg/actuation nasal spry 1 sprays once daily [Active]; oxcarbazepine 300 mg oral tab 2 tabs 2 times per day [Active]; propranolol 20 mg Oral tab 1 tab 3 times per day [Active]; simvastatin 40 mg Oral tab 1 tab once daily [Active]; Stool Softner 100 mg 1 cap daily [Active]; - PMHx: 15:43 CONSTIPATION - CHRONIC; Depression; Diabetes - NIDDM; FACET ARTHRITIS; gingivitis; bp Hypertension; IMPULSE CONTROL DISORDER; LEGG-PERTHES DS; MODERATE MR; SCHIZOTYPAL PERSONALITY DISORDER; Seizures; PSEUDOBULBAR AFFECT; NEUROLEPTIC PARKSINSON'S; - Immunization history:: Adult Immunizations up to date. - Social history:: Smoking status: Patient denies any tobacco usage or history of. Screenin:35 Abuse screen: Denies threats or abuse. Denies injuries from another. Nutritional bp screening: No deficits noted. Tuberculosis screening: No symptoms or risk factors identified. Fall Risk None identified. Assessment: 15:35 General: SEE TRIAGE NOTE. bp 16:53 Reassessment: Patient appears in no apparent distress at this time. No changes from bp previously documented assessment. Patient and/or family updated on plan of care and expected duration. Pain level reassessed. PT RETURNED FROM RADIOLOGY. UOP PENDING. 19:29 General:. jv1 19:30 General: Appears in no apparent distress. comfortable, Behavior is calm, cooperative. jv1 Pain: Denies pain. Neuro: Level of Consciousness is confused, lethargic, wakes up when called, but falls asleep right away. Oriented to pt not cooperative with assessment. Elevator Operator are equal bilaterally Moves all extremities. Speech is normal. Cardiovascular: Denies chest pain, Heart tones S1 S2 Capillary refill < 3 seconds Pulses are all present. Respiratory: Airway is patent Respiratory effort is even, unlabored, Respiratory pattern is regular, symmetrical, Breath sounds are clear bilaterally. GI: Abdomen is round non-distended. : No signs and/or symptoms were reported regarding the genitourinary system. EENT: No signs and/or symptoms were reported regarding the EENT system. Derm: Skin is intact, is healthy with good turgor. Musculoskeletal: No signs and/or symptoms reported regarding the musculoskeletal system. 20:37 Reassessment: Patient appears in no apparent distress at this time. No changes from jv1 previously documented assessment. Patient and/or family updated on plan of care and expected duration. Pain level reassessed. 21:47 Reassessment: Patient appears in no apparent distress at this time. No changes from jv1 previously documented assessment. Patient and/or family updated on plan of care and expected duration. Pain level reassessed. pt wakes up easily when called and answers questions. Patient denies pain at this time. 23:00 Reassessment: Patient appears in no apparent distress at this time. No changes from jv1 previously documented assessment. Patient and/or family updated on plan of care and expected duration. Pain level reassessed. assisted pt out of bed to use the urinal. 23:00 Reassessment: called report to Mery José RN. jv1 Vital Signs: 15:30 BP 135 / 86; Pulse 99; Resp 12; Pulse Ox 97% ; bp 15:34 BP 110 / 80; Pulse 74; Resp 18; Temp 98; Pulse Ox 99% ; bp 16:52 BP 134 / 87; Pulse 96; Resp 19; Pulse Ox 97% ; bp 19:30 BP 140 / 70; Pulse 94; Resp 18; Temp 98.5; Pulse Ox 95% ; Pain 0/10; jv1 20:37 BP 151 / 93; Pulse 94; Resp 20; Temp 99.0; Pulse Ox 98% ; Pain 0/10; jv1 21:48 BP 155 / 70; Pulse 90; Resp 18; Temp 98.8; Pulse Ox 98% on R/A; Pain 0/10; jv1 22:40 BP 145 / 72; Pulse 90; Resp 18; Temp 98.5; Pulse Ox 98% on R/A; Pain 0/10; jv1 ED Course: 15:30 Arm band placed on. bp 15:33 Patient arrived in ED. bp 15:35 Patient has correct armband on for positive identification. Bed in low position. Call bp light in reach. Side rails up X2. 15:37 Triage completed. bp 15:38 Dharmesh Munoz PA is PHCP. cp 15:39 Omega Hale MD is Attending Physician. cp 15:44 Ervin Santiago, ELLIE is Primary Nurse. bp 16:30 Inserted saline lock: 22 gauge in right forearm, using aseptic technique. Blood bp collected. 16:36 CT Head Brain wo Cont In Process Unspecified. EDMS 16:44 EKG done, by ED staff, reviewed by Dhramesh LE. jp3 17:00 XRAY Chest (1 view) In Process Unspecified. EDMS 17:56 Notified Nurse Practitioner and/or Physician Welt Beater of a critical lab result(s), ca1 Lactate 2.2. 18:32 Straight cath inserted, using sterile technique, 16 Fr. Specimen obtained. Returned bp randy urine. Patient tolerated well. 18:47 Maria G Wright MD is Hospitalizing Provider. cp 18:56 Hospitalizing Provider role handed off by Maria G Wright MD cp 18:56 Donte Pérez is Hospitalizing Provider. cp 19:30 COVID-19 Sent. jv1 23:02 No provider procedures requiring assistance completed. Patient admitted, IV remains in jv1 place. intact. 23:29 Primary Nurse role handed off by Ervin Santiago, ELLIE almendarez Administered Medications: 18:20 Drug: NS 0.9% 1000 ml Route: IV; Rate: 1 bolus; Site: right forearm; bp 20:06 Follow up: Response: No adverse reaction; IV Status: Completed infusion jv1 20:05 Drug: NS 0.9% 1000 ml Route: IV; Rate: 1 bolus; Site: right forearm; jv1 21:44 Follow up: Response: No adverse reaction; IV Status: Completed infusion jv1 Outcome: 18:47 Decision to Hospitalize by Provider. cp 23:02 Admitted to ICU accompanied by tech, via stretcher, room icu bed 1, Report called to jv1 Mery José RN 23:02 Condition: stable 23:02 Instructed on the need for admit, Demonstrated understanding of instructions. 23:35 Patient left the ED. jd3 Signatures: Dispatcher [employer] EDMS Maverick Hines, RN RN sg Dharmesh Munoz PA PA cp Davies, Jonathon, RN RN jd3 Ervin Santiago, ELLIE ARGUETA bp Andrew Gtz jp3 Karina Saenz RN RN jv1 Acob, Jes, RN RN ca1 Corrections: (The following items were deleted from the chart) 16:52 15:35 BP 134 / 87; Pulse 96bpm; Resp 19bpm; Pulse Ox 97%; bp bp 23:01 22:40 BP 140 / 70; Pulse 90bpm; Resp 18bpm; Pulse Ox 98% RA; Temp 98.5F; Pain 0/10; jv1 jv1
--- NOTE | 2020-07-29 18:48 | EDPHYS ---
Physician Documentation [facility] Name: Erich Houser Jr Age: 54 yrs Sex: Male : 1965 Arrival Date: 07/29/2020 Time: 15:33 Bed 20 Private MD: ED Physician Omega Hale HPI: 07/29 15:45 This 54 yrs old Black Male presents to ER via EMS with complaints of MALAISE. cp 15:45 The patient presents with decreased responsiveness. cp 15:45 Onset: The symptoms/episode began/occurred today. Possible causes: unknown. Associated cp signs and symptoms: Pertinent negatives: abdominal pain, chest pain, fever. Current symptoms: In the emergency department the patient's symptoms are unchanged from the initial presentation. The patient has experienced a previous episode. EMS reports patient recently tested positive for COVID-19. Historical: - Allergies: 15:43 Hydrochlorothiazide; bp - Home Meds: 15:43 Align 4 mg Oral cap daily [Active]; benztropine 2 mg Oral tab 1 tab 3 times per day bp [Active]; bisacodyl 5 mg Oral TbEC 1 tab three times weekly [Active]; carvedilol 6.25 mg Oral tab 1 tab 2 times per day [Active]; divalproex 250 mg Oral Tb24 1 tabs once daily [Active]; divalproex sod DR-500mg 500 mg 1 tab twice a day [Active]; DOXYCYLINE 20 mg 1 tab twice a day [Active]; Fanapt 12 mg Oral tab 1 tab 2 times per day [Active]; loxapine succinate 25 mg Oral cap 1 cap every morning [Active]; metformin 500 mg Oral tab 1 tab daily [Active]; mometasone 50 mcg/actuation nasal spry 1 sprays once daily [Active]; oxcarbazepine 300 mg oral tab 2 tabs 2 times per day [Active]; propranolol 20 mg Oral tab 1 tab 3 times per day [Active]; simvastatin 40 mg Oral tab 1 tab once daily [Active]; Stool Softner 100 mg 1 cap daily [Active]; - PMHx: 15:43 CONSTIPATION - CHRONIC; Depression; Diabetes - NIDDM; FACET ARTHRITIS; gingivitis; bp Hypertension; IMPULSE CONTROL DISORDER; LEGG-PERTHES DS; MODERATE MR; SCHIZOTYPAL PERSONALITY DISORDER; Seizures; PSEUDOBULBAR AFFECT; NEUROLEPTIC PARKSINSON'S; - Immunization history:: Adult Immunizations up to date. - Social history:: Smoking status: Patient denies any tobacco usage or history of. ROS: 15:55 Neuro: Positive for altered mental status. cp 15:55 Constitutional: Negative for fever. cp 15:55 Unable to obtain ROS due to altered mental status. cp Exam: 16:00 Constitutional: The patient appears in no acute distress, alert, awake, cp non-diaphoretic, non-toxic, well developed, well nourished. 16:00 Eyes: Periorbital structures: appear normal, Pupils: equal, round, and reactive to cp light and accomodation, Conjunctiva: normal, no exudate, no injection, Sclera: no appreciated abnormality, Lids and lashes: appear normal, bilaterally. 16:00 ENT: External ear(s): are unremarkable, Nose: is normal, Posterior pharynx: Airway: no evidence of obstruction, patent. 16:00 Neck: ROM/movement: is normal, is supple, no nuchal rigidity. 16:00 Chest/axilla: Inspection: normal, Palpation: is normal, no crepitus, no tenderness. 16:00 Cardiovascular: Rate: normal, Rhythm: regular, Edema: is not appreciated, JVD: is not appreciated. 16:00 Respiratory: the patient does not display signs of respiratory distress, Respirations: normal, no use of accessory muscles, no retractions, labored breathing, is not present, Breath sounds: are clear throughout, no decreased breath sounds, no stridor, no wheezing. 16:00 Abdomen/GI: Inspection: abdomen appears normal, Bowel sounds: active, all quadrants, Palpation: abdomen is soft and non-tender, in all quadrants. 16:00 Back: CVA tenderness, is absent. 16:00 Head/face: Microcephalic, atraumatic. cp 16:00 Neuro: Mentation: somnolent, responsive to voice. cp 16:00 Skin: no rash present. cp 16:50 ECG was reviewed by the Attending Physician. cp Vital Signs: 15:30 BP 135 / 86; Pulse 99; Resp 12; Pulse Ox 97% ; bp 15:34 BP 110 / 80; Pulse 74; Resp 18; Temp 98; Pulse Ox 99% ; bp 16:52 BP 134 / 87; Pulse 96; Resp 19; Pulse Ox 97% ; bp 19:30 BP 140 / 70; Pulse 94; Resp 18; Temp 98.5; Pulse Ox 95% ; Pain 0/10; jv1 20:37 BP 151 / 93; Pulse 94; Resp 20; Temp 99.0; Pulse Ox 98% ; Pain 0/10; jv1 21:48 BP 155 / 70; Pulse 90; Resp 18; Temp 98.8; Pulse Ox 98% on R/A; Pain 0/10; jv1 22:40 BP 145 / 72; Pulse 90; Resp 18; Temp 98.5; Pulse Ox 98% on R/A; Pain 0/10; jv1 MDM: 15:42 Patient medically screened. cp 18:40 Data reviewed: vital signs, nurses notes, old medical records, EKG, radiologic studies, cp CT scan, plain films, I have discussed the patient's presentation/case with the attending Emergency Department Physician; and as a result, I will admit patient. 18:40 Test interpretation: by ED physician or midlevel provider: ECG, chest xray negative for cp infiltrates. Response to treatment: the patient's symptoms have mildly improved after treatment. Physician consultation: Gene LE was contacted at 18:40, regarding admission, to the telemetry unit. patient's condition. 07/29 15:41 Order name: Basic Metabolic Panel 07/29 15:41 Order name: CBC with Diff; Complete Time: 17:08 07/29 17:09 Interpretation: Normal except: RBC 4.22; HGB 13.2; HCT 39.4; RDW 15.3; RICHARD% 78.0; LYM% cp 12.3. 07/29 15:41 Order name: LFT's; Complete Time: 17:34 cp 07/29 17:34 Interpretation: Normal except: ALK 41; GLOB 4.1; A/G 0.8. cp 07/29 15:41 Order name: Magnesium; Complete Time: 17:34 07/29 15:41 Order name: NT PRO-BNP; Complete Time: 17:34 cp 07/29 15:41 Order name: PT-INR; Complete Time: 17:08 07/29 15:41 Order name: Troponin (emerg Dept Use Only); Complete Time: 17:34 07/29 15:41 Order name: Urine Microscopic Only; Complete Time: 19:06 cp 07/29 15:41 Order name: Procalcitonin; Complete Time: 17:58 cp 07/29 15:41 Order name: Lactate; Complete Time: 17:58 cp 07/29 18:19 Interpretation: Abnormal: LAC 2.2. cp 07/29 15:41 Order name: Blood Culture Adult (2) cp 07/29 15:42 Order name: Basic Metabolic Panel; Complete Time: 17:34 EDMS 07/29 17:34 Interpretation: Normal except: GFR 80. cp 07/29 17:09 Order name: UDS; Complete Time: 19:06 cp 07/29 18:30 Order name: Depakote; Complete Time: 19:24 jr8 07/29 15:41 Order name: XRAY Chest (1 view); Complete Time: 17:34 cp 07/29 15:41 Order name: EKG; Complete Time: 15:42 cp 07/29 15:41 Order name: Cardiac monitoring; Complete Time: 16:01 cp 07/29 15:41 Order name: EKG - Nurse/Tech; Complete Time: 16:50 cp 07/29 15:41 Order name: IV Saline Lock; Complete Time: 16:50 cp 07/29 15:41 Order name: Labs collected and sent; Complete Time: 16:50 cp 07/29 15:41 Order name: O2 Per Protocol; Complete Time: 16:01 cp 07/29 15:41 Order name: O2 Sat Monitoring; Complete Time: 16:01 07/29 15:41 Order name: CT Head Brain wo Cont; Complete Time: 17:08 cp 07/29 18:41 Order name: Urine Dipstick--Ancillary (enter results) ss 07/29 18:53 Order name: CK cp 07/29 19:14 Order name: COVID-19 tt3 07/29 21:47 Order name: Lactate Sepsis 2 HR Follow-up EDFL 07/29 22:28 Order name: SARS-COV-2 RT PCR EDFL 07/29 15:41 Order name: Urine Dipstick-Ancillary (obtain specimen); Complete Time: 18:40 cp 07/29 18:01 Order name: Cath; Complete Time: 18:21 cp EC:50 Rate is 98 beats/min. Rhythm is regular. IA interval is normal. QRS interval is normal. cp QT interval is normal. Interpreted by me. Reviewed by me. Administered Medications: 18:20 Drug: NS 0.9% 1000 ml Route: IV; Rate: 1 bolus; Site: right forearm; bp 20:06 Follow up: Response: No adverse reaction; IV Status: Completed infusion jv1 20:05 Drug: NS 0.9% 1000 ml Route: IV; Rate: 1 bolus; Site: right forearm; jv1 21:44 Follow up: Response: No adverse reaction; IV Status: Completed infusion jv1 Disposition: 19:00 Chart complete. cp Disposition: 07/29/20 18:47 Hospitalization ordered by Donte Pérez for Observation. Preliminary diagnosis are Altered mental status, unspecified, Poisoning by other drugs, medicaments and biological substances, undetermined - Depakote. - Bed requested for Intensive Care Unit. - Status is Observation. jd3 - Condition is Stable. - Problem is new. - Symptoms are unchanged. Addendum: 08/04/2020 19:14 Co-signature as Attending Physician, Omega Hale MD. r n Signatures: Dispatcher [employer] EDMS Omega Hale MD MD rn Roszak, Josh, PA PA jr8 Shelryn Brandon RN RN tl1 Dharmesh Munoz PA PA cp Charlie Busby RN RN jd3 Ervin Santiago RN RN Karina Young RN RN jv1 Corrections: (The following items were deleted from the chart) 07/29 17:28 17:27 Neuro: Positive for altered mental status, cp cp 18:24 16:00 Head/Face: Normocephalic, atraumatic. cp cp 18:56 18:47 Hospitalization Ordered by Maria G Wright MD for Observation. Preliminary cp diagnosis is Altered mental status, unspecified. Bed requested for Telemetry/MedSurg (observation). Status is Observation. Condition is Stable. Problem is new. Symptoms are unchanged. cp 19:32 18:56 07/29/2020 18:47 Hospitalization Ordered by Donte Pérez for Observation. cp Preliminary diagnosis is Altered mental status, unspecified. Bed requested for Telemetry/MedSurg (observation). Status is Observation. Condition is Stable. Problem is new. Symptoms are unchanged. cp 19:32 19:32 07/29/2020 18:47 Hospitalization Ordered by Donte Pérez for Observation. cp Preliminary diagnosis is Altered mental status, unspecified; Poisoning by other drugs, medicaments and biological substances, undetermined. Bed requested for Telemetry/MedSurg (observation). Status is Observation. Condition is Stable. Problem is new. Symptoms are unchanged. cp 22:40 19:32 07/29/2020 18:47 Hospitalization Ordered by Donte Pérez for Observation. tl1 Preliminary diagnosis is Altered mental status, unspecified; Poisoning by other drugs, medicaments and biological substances, undetermined - Depakote. Bed requested for Telemetry/MedSurg (observation). Status is Observation. Condition is Stable. Problem is new. Symptoms are unchanged. cp 23:35 22:40 07/29/2020 18:47 Hospitalization Ordered by Donte Pérez for Observation. jd3 Preliminary diagnosis is Altered mental status, unspecified; Poisoning by other drugs, medicaments and biological substances, undetermined - Depakote. Bed requested for Intensive Care Unit. Status is Observation. Condition is Stable. Problem is new. Symptoms are unchanged. tl1
[2020-07-29 18:57] LABS: Barbiturates NEGATIVE (NEGATIVE); Benzodiazepines NEGATIVE (NEGATIVE); Cocaine NEGATIVE (NEGATIVE); METHAMPHETAM NEGATIVE (NEGATIVE); Methadone NEGATIVE (NEGATIVE); Opiates NEGATIVE (NEGATIVE); Phencyclidine NEGATIVE (NEGATIVE); THC Cannibis NEGATIVE (NEGATIVE)
[2020-07-29 19:02] LABS: Urine Bacteria <20 /HPF (NONE SEEN); Urine Culture Reflex Order NOT NEEDED; Urine Mucus 2+ /HPF (NONE SEEN); Urine RBC <5 /HPF (NONE SEEN)
[2020-07-29 20:21] LABS: Urine Blood NEGATIVE (NEG); Urine Glucose NEGATIVE (NEG); Urine Protein 1+ (NEG); Urine pH 7.5 (5.0-7.0)
[2020-07-29] MEDS: NA CHLORIDE 0.9% 1,000 ML IV SCH (21:31)
[2020-07-29] MEDS ORDERED: GLUCAGON 1 MG/VIAL IM PRN (21:31)
[2020-07-29] MEDS: INSULIN -REGULAR HUMAN 50 UNIT/0.5 ML ML SQ SCH (21:31)
[2020-07-29] MEDS ORDERED: D50W 25 GM/50 ML SYRINGE/VIAL IV PRN (21:31)
[2020-07-29] MEDS ORDERED: ONDANSETRON 4 MG/2 ML VIAL IV PRN (21:31)
--- NOTE | 2020-07-30 00:08 | P.HP ---
Certification for Inpatient Patient admitted to: Observation With expected LOS: <2 Midnights Patient will require the following post-hospital care: Other (halfway) Practitioner: I am a practitioner with admitting privileges, knowledge of patient current condition, hospital course, and medical plan of care. Services: Services provided to patient in accordance with Admission requirements found in Title 42 Section 412.3 of the Code of Federal Regulations Patient History Date of Service: 07/30/20 Reason for admission: Dehydration and altered mental status History of Present Illness: This is a 54-year-old male with significant cognitive delay and other mental impairment. Patient lives in a fpc. The tax manager cpa of the patient called EMS to bring patient to the emergency room today after noting that patient had a decrease in mental status. No tax manager cpa at the hospital upon interview with the patient by hospitalist team. Emergency room to their knowledge said that had there has been no new changes in his medications. Patient was worked up for altered mentation. Patient had a normal white cell count and did not have any signs of systemic infection. Patient did have an elevated lactate and a mildly elevated CK. Patient had Depakote level also drawn in the emergency department and was found to be mildly elevated at 107. Hospital team was called at that time for admission and further workup. Allergies hydrochlorothiazide Allergy (Unverified 01/16/16 00:13) Unknown Home medications list reviewed: Yes Home Medications: Benztropine Mesylate 2 mg PO BID 01/18/18 Cholecalciferol (Vitamin D3) [Vitamin D3] 5,000 units PO DAILY 01/18/18 Divalproex Sodium [Depakote] 500 mg PO BID 01/18/18 Docusate [Colace Cap*] 100 mg PO DAILY 01/18/18 Doxycycline Hyclate [Targadox] 20 mg PO DAILY 01/18/18 Iloperidone [Fanapt] 8 mg PO BID 01/18/18 Metformin ER [Glucophage ER*] 500 mg PO DAILY WITH BREAKFAST 01/18/18 Metoprolol Succinate [Toprol Xl*] 50 mg PO DAILY 01/18/18 OXcarbazepine [Trileptal] 300 mg PO [id number] 01/18/18 Oxcarbazepine [Trileptal] 600 mg PO BEDTIME 01/18/18 Propranolol [Inderal*] 20 mg PO BID 01/18/18 Simvastatin 40 mg PO BEDTIME 01/18/18 lisinopriL [Prinivil] 20 mg PO DAILY 01/18/18 risperiDONE [Risperdal] 3 mg PO BID 01/18/18 - Past Medical/Surgical History Has patient received pneumonia vaccine in the past: No Diabetic: Yes -: Hypertension -: Diabetes type 2 -: Seizure disorder - Family History Father Notes: pt not good historian - Social History Smoking Status: Never smoker Smoking therapy provided: No Alcohol use: No CD- Drugs: No Caffeine use: Yes Place of Residence: Home (halfway) Review of Systems Eyes: Unremarkable ENT: Unremarkable Respiratory: Unremarkable Cardiovascular: Unremarkable Gastrointestinal: Unremarkable Musculoskeletal: Unremarkable Integumentary: Unremarkable Neurological: As per HPI Physical Examination - Vital Signs Temperature: 98 F Blood Pressure: 135/86 Pulse: 74 Respirations: 18 Pulse Ox (%): 97 (Room air) - Physical Exam General: Alert, In no apparent distress, Oriented x1, Cooperative HEENT: PERRLA, Other (Mild dryness to mucous membranes), EOMI Neck: Supple, JVD not distended, No Thyromegaly Respiratory: Clear to auscultation bilaterally, Normal air movement Cardiovascular: No edema, Normal pulses, Regular rate/rhythm, Normal S1 S2, No gallops, No rubs, No murmurs Capillary refill: <2 Seconds Gastrointestinal: Normal bowel sounds, Soft and benign, Non-distended, No ascites, No tenderness, No masses, No rebound, No guarding Musculoskeletal: No clubbing, No swelling, No contractures, No erythema, No tenderness, No warmth Integumentary: No rashes, No breakdown, No significant lesion, No tenderness/swelling, No erythema, No warmth, No cyanosis Neurological: Normal speech, Normal strength at 5/5 x4 extr, Normal tone, Sensation intact, Cranial nerves 3-12 intact, Normal affect Lymphatics: No axilla or inguinal lymphadenopathy - Studies Laboratory Data (last 24 hrs) 07/29/20 16:30: PT 12.2, INR 1.03 07/29/20 16:30: WBC 7.6, Hgb 13.2 L, Hct 39.4 L, Plt Count 180 07/29/20 16:30: Sodium 136, Potassium 4.2, BUN 13, Creatinine 1.16, Glucose 104, Magnesium 2.0, Total Bilirubin 0.3, AST 20, ALT 12, Alkaline Phosphatase 41 L Assessment and Plan - Problems (Diagnosis) (1) Altered mental state Current Visit: Yes Status: Acute Plan: The patient has known moderate cognitive delay. Patient was found to have dehydration present and mild elevation of valproic acid which could be contributing to worsening of mental status. Patient had mild somnolence on assessment but would still answer questions to the best of his ability and still followed commands to the best of his ability. Mental status will be observed overnight. Patient will be hydrated throughout the night and his medications will be held specifically his valproic acid. We will recheck his labs in the morning including another valproic acid to ensure that he is coming down. If patient does well and labs normalize patient expected to go home in the next 24 hr. Qualifiers: Altered mental status type: transient alteration of awareness Qualified Code(s): R40.4 - Transient alteration of awareness (2) Valproic acid toxicity Current Visit: Yes Status: Acute Plan: Plan is to hold his medications for now and to redraw of his levels in the morning and continue to hydrate overnight. Qualifiers: Encounter type: initial encounter Injury intent: accidental or unintentional Qualified Code(s): T42.6X1A - Poisoning by other antiepileptic and sedative-hypnotic drugs, accidental (unintentional), initial encounter (3) Dehydration Current Visit: Yes Status: Acute Plan: Patient be hydrated overnight and labs will be reassessed to see how patient is doing. (4) Diabetes type 2, controlled Onset Date: 01/18/18 Current Visit: No Status: Chronic Plan: Patient put on mild sliding scale as needed. Patient had good glucose control upon arrival in the emergency room. Qualifiers: Diabetes mellitus long-term insulin use: with workers compensation paralegal use Diabetes mellitus complication status: without complication Qualified Code(s): E11.9 - Type 2 diabetes mellitus without complications; Z79.4 - manager visual (current) use of insulin (5) Hypertension Onset Date: 01/18/18 Current Visit: No Status: Chronic Qualifiers: Hypertension type: essential hypertension Qualified Code(s): I10 - Essential (primary) hypertension - Plan Blood pressure management as needed. Patient was normotensive in the emergency room we will continue to assess vitals throughout the next 24 hr. Discharge Plan: Home Plan to discharge in: 24 Hours - Advance Directives Does patient have a Living Will: No Does patient have a Durable POA for Healthcare: No - Code Status/Comfort Care Code Status Assessed: No Critical Care: No Time Spent Managing Pts Care (In Minutes): 60
[2020-07-30] MEDS: ACETAMINOPHEN 500 MG TAB PO PRN ×3 (03:23→20:36)
[2020-07-30] MEDS: NA CHLORIDE 0.9% 1,000 ML IV SCH ×3 (05:05→20:02)
[2020-07-30 05:24] LABS: Absolute Lymphocytes (CBC) 1.6 K/uL (0.7-4.9); Basophils % 0.3 % (0-1.3); Hematocrit 35.4 % (39.6-49.0); Lymphocytes % 28.4 % (15.3-44.8); MPV 9.9 fL (7.6-11.3); RBC Red Blood Cell Count 3.82 M/uL (4.33-5.43)
[2020-07-30 05:57] LABS: BUN Blood Urea Nitrogen 10 mg/dL (7-18); Bicarbonate 27 mmol/L (21-32); Creatine Phosphokinase 725 U/L (39-308); Glucose Level 103 mg/dL (74-106); Potassium 3.5 mmol/L (3.5-5.1); Sodium Level 138 mmol/L (136-145)
[2020-07-30] MEDS ORDERED: BISMUTH SUBSALICYL 262MG/15ML-240 ML BTL PO PRN (06:03)
[2020-07-30] MEDS ORDERED: POLYETHYL GLY 3350 17 GM/DOSE PO PRN (06:03)
[2020-07-30] MEDS ORDERED: guaiFENesin 100 MG/5 ML UCUP PO PRN (06:03)
[2020-07-30] MEDS ORDERED: MAGNESIUM HYDROXIDE 8% 30 ML PO PRN (06:03)
[2020-07-30] MEDS: INSULIN -REGULAR HUMAN 50 UNIT/0.5 ML ML SQ SCH ×4 (07:30→20:43)
--- NOTE | 2020-07-30 07:33 | EKG ---
Test Date: 2020-07-29 Test Time: 16:44:50 Cake Inspector: AMMY MEASUREMENT RESULTS: Intervals: Rate: 98 ID: [id number] QRSD: 74 QT: 356 QTc: 454 [place]: P: 71 ID: [id number] QRS: 70 T: 39 INTERPRETIVE STATEMENTS: Normal sinus rhythm Possible Inferior infarct, age undetermined Abnormal ECG Compared to ECG 10/07/2018 17:11:42 Myocardial infarct finding now present T-wave abnormality no longer present Electronically Signed On 07-30-20 07:32:23 NOC TECHNICIAN by Rex Silva
--- NOTE | 2020-07-30 07:55 | P.DS ---
Admission Date: 07/29/20 Discharge Date: 07/30/20 Disposition: ROUTINE DISCHARGE Discharge Condition: GOOD Reason for Admission: Dehydration and altered mental status Brief History of Present Illness: Please refer to H&P Hospital Course: Patient is a 54-year-old male with mental retardation, hypertension and type 2 diabetes mellitus. He was admitted to the hospital due to concern of change in mental status. Basic labs obtained during his hospital status showed some mildly supratherapeutic valproic acid, which normalized on the day of admission patient had a negative CT head and a chest x-ray. He tested positive for COVID 19. Patient was saturating well on room air at 96%. On basic evaluation, he had nonlabored breathing. With a negative chest x-ray and no respiratory distress, a decision was made not to start any cough rate specific medications. Vital Signs/Physical Exam: Temp Pulse Resp BP Pulse Ox 98.4 F 90 18 156/86 H 96 07/30/20 07:00 07/30/20 04:00 07/30/20 00:13 07/30/20 04:00 07/30/20 04:00 General: In no apparent distress, Other (sleeping) HEENT: Other (microcephaly) Neck: Supple Respiratory: Clear to auscultation bilaterally, Normal air movement Gastrointestinal: Soft and benign, No tenderness, No guarding, Distended Musculoskeletal: No clubbing, No swelling, No contractures, No erythema, No tenderness, No warmth Integumentary: No rashes, No breakdown, No significant lesion, No tenderness/swelling, No erythema, No warmth, No cyanosis Neurological: Normal speech, Normal affect Laboratory Data at Discharge: WBC 5.7 K/uL (4.3-10.9) D 07/30/20 04:29 Hgb 12.0 g/dL (13.6-17.9) L 07/30/20 04:29 Hct 35.4 % (39.6-49.0) L 07/30/20 04:29 Plt Count 146 K/uL (152-406) L 07/30/20 04:29 PT 12.2 SECONDS (9.5-12.5) 07/29/20 16:30 INR 1.03 07/29/20 16:30 Sodium 138 mmol/L (136-145) 07/30/20 04:29 Potassium 3.5 mmol/L (3.5-5.1) 07/30/20 04:29 BUN 10 mg/dL (7-18) 07/30/20 04:29 Creatinine 0.70 mg/dL (0.55-1.3) 07/30/20 04:29 Glucose 103 mg/dL (74-106) 07/30/20 04:29 Magnesium 2.0 mg/dL (1.8-2.4) 07/29/20 16:30 Total Bilirubin 0.3 mg/dL (0.2-1.0) 07/29/20 16:30 AST 20 U/L (15-37) 07/29/20 16:30 ALT 12 U/L (12-78) 07/29/20 16:30 Alkaline Phosphatase 41 U/L (45-117) L 07/29/20 16:30 Home Medications: Benztropine Mesylate 2 mg PO TID 01/18/18 Cholecalciferol (Vitamin D3) [Vitamin D3] 5,000 units PO DAILY 01/18/18 Divalproex Sodium [Depakote] 500 mg PO BID 01/18/18 Docusate [Colace Cap*] 100 mg PO BIDL 01/18/18 Doxycycline Hyclate [Targadox] 20 mg PO BIDL 01/18/18 Iloperidone [Fanapt] 12 mg PO BID 01/18/18 Metformin ER [Glucophage ER*] 500 mg PO DAILY WITH BREAKFAST 01/18/18 Oxcarbazepine [Trileptal] 600 mg PO BEDTIME 01/18/18 Propranolol [Inderal*] 20 mg PO TID 01/18/18 Simvastatin 40 mg PO BEDTIME 01/18/18 Acetaminophen [Tylenol] 650 mg PO Q4HP PRN 07/30/20 Bifidobacterium Infantis [Align] 4 mg PO DAILY 07/30/20 Bisacodyl [Dulcolax] 5 mg PO M,W,F 07/30/20 Bismuth Subsalicylate [Bismatrol] 262 mg PO PRN PRN 07/30/20 Dextromethorphan HBr [Tussin Cough] 15 mg PO BID 07/30/20 Diphenhydramine [Benadryl*] 25 mg PO Q4HP PRN MDD 200 07/30/20 Divalproex Sodium 250 mg PO SEECOM 07/30/20 Guaifenesin [Diabetic Tussin Ex] 100 mg PO Q4HP PRN MDD 600 07/30/20 Loratadine [Claritin*] 10 mg PO DAILYPRN PRN MDD 10 07/30/20 Loxapine [Adasuve] 25 mg PO DAILY 07/30/20 Loxapine [Adasuve] 50 mg PO BEDTIME 07/30/20 Magnesium Hydroxide [Milk of Magnesia] 400 mg PO DAILYPRN PRN 07/30/20 Mometasone Furoate [Nasonex] 50 mcg NS DAILY 07/30/20 carvediloL [Carvedilol] 6.25 mg PO BID 07/30/20 polyethylene glycoL 3350 [Polyethylene Glycol 3350] 17 gm PO TIDP PRN 07/30/20 Diet: Regular Followup: MAURICE RICHARDS [Primary Care Provider] - 1 Week (Please follow with your primary care doctor in one week. )
[2020-07-30] MEDS: VITAMIN D 5,000 UNIT CAP PO SCH (08:27)
[2020-07-30] MEDS: FLUTICASONE 50MCG NASAL SPRAY NAS SCH (08:27)
[2020-07-30] MEDS: carvediloL 6.25 MG TAB PO SCH ×2 (08:27→16:13)
[2020-07-30] MEDS: DOCUSATE NA 100 MG CAP PO SCH ×2 (08:28→16:13)
[2020-07-30] MEDS: BENZTROPINE 1 MG TAB PO SCH ×3 (08:28→19:58)
[2020-07-30] MEDS: Bifidobacterium Infantis [Align] 4 MG PO SCH (08:29)
[2020-07-30] MEDS: DEXTROMETHORPHAN HBR 15 MG PO SCH ×2 (08:29→19:16)
[2020-07-30] MEDS: PROPRANOLOL HCL 40 MG TAB PO SCH ×3 (08:29→19:59)
[2020-07-30] MEDS: LOXAPINE 25 MG PO SCH (08:30)
[2020-07-30] MEDS: ILOPERIDONE 12 MG PO SCH ×2 (08:30→19:16)
--- NOTE | 2020-07-30 09:30 | RAD REPORT ---
EXAM DESCRIPTION: RAD - Abdomen 1 View (KUB) - 07/30/2020 9:23 am CLINICAL HISTORY: Abdomen pain. FINDINGS: Air is present within nondilated small bowel and colon in a nonspecific fashion. An obstru ction is not present Calcifications within the pelvis probably phleboliths
[2020-07-30 13:28] LABS: Absolute Lymphocytes (CBC) 1.4 K/uL (0.7-4.9); Basophils % 0.5 % (0-1.3); Hematocrit 36.9 % (39.6-49.0); Lymphocytes % 23.2 % (15.3-44.8); RBC Red Blood Cell Count 3.97 M/uL (4.33-5.43)
--- NOTE | 2020-07-30 13:35 | P.INFCA ---
Sepsis Focused Assessment - Focused Assessment Complete? Sepsis Focused Assessment Completed?: Yes - Sepsis Screen Result Severe Sepsis: Negative Septic Shock: Negative - Evaluation Current stage of sepsis: Ruled out Reason for ruling out sepsis: Multiple fever spikes - Vital Signs Reviewed: Yes Temperature: 99.6 F Heart rate: 95 Blood Pressure: 164/91 O2 Sat by Pulse Oximetry: 97 - Examination Heart: Regular rate/rhythm, S1, S2 Lungs: Clear bilaterally Peripheral pulses: 3+ Normal Capillary refill: <2 Seconds Skin examination: Unremarkable Comments: Sepsis work up pending procalcitonin, lactic acid and blood cultures
--- NOTE | 2020-07-30 14:29 | RAD REPORT ---
EXAM DESCRIPTION: RAD - Chest Single View - 07/30/2020 2:24 pm CLINICAL HISTORY: r/o PNA Chest pain. COMPARISON: Abdomen 1 View (KUB) dated 07/30/2020; Chest Single View dated 07/29/2020; Chest Single Vi ew dated 10/07/2018; Chest Single View dated 01/17/2018 FINDINGS: Portable technique limits examination quality. The lungs are grossly clear. The heart is upper limit of normal in size. No displaced fractures. IMPRESSION: No acute intrathoracic process suspected.
[2020-07-30] MEDS: CEFEPIME/SWI 1gm 10 ML IVP SCH (16:52)
[2020-07-30] MEDS: OXcarbazepine 150 MG TAB PO SCH (20:00)
[2020-07-30] MEDS ORDERED: CEFEPIME 1 GM/VIAL IV SCH (21:00)
[2020-07-30] MEDS ORDERED: LOXAPINE 50 MG PO SCH (21:00)
[2020-07-30] MEDS ORDERED: ACETAMINOPHEN 500 MG TAB PO ONE (23:49)
[2020-07-31] MEDS: NA CHLORIDE 0.9% 1,000 ML IV SCH ×4 (03:31→23:56)
[2020-07-31 05:26] VITALS: BMI 33.5
[2020-07-31] MEDS: LOXAPINE 25 MG PO SCH (07:23)
[2020-07-31] MEDS: ILOPERIDONE 12 MG PO SCH ×2 (07:23→20:53)
[2020-07-31] MEDS: DEXTROMETHORPHAN HBR 15 MG PO SCH ×2 (07:23→20:53)
[2020-07-31] MEDS: Bifidobacterium Infantis [Align] 4 MG PO SCH (07:23)
[2020-07-31] MEDS: INSULIN -REGULAR HUMAN 50 UNIT/0.5 ML ML SQ SCH ×4 (07:30→20:53)
[2020-07-31 07:31] LABS: C-Reactive Protein 62.1 mg/L (<3.00)
[2020-07-31] MEDS: carvediloL 6.25 MG TAB PO SCH ×2 (08:17→17:16)
[2020-07-31] MEDS: THIAMINE HCL 100 MG TABLET PO SCH ×2 (08:17→08:33)
[2020-07-31] MEDS: ASCORBIC ACID 500 MG TABLET PO SCH ×2 (08:17→08:33)
[2020-07-31] MEDS: VITAMIN D 5,000 UNIT CAP PO SCH (08:17)
[2020-07-31] MEDS: ZINC SULFATE 220 MG CAP PO SCH ×2 (08:18→08:33)
[2020-07-31] MEDS: DOCUSATE NA 100 MG CAP PO SCH ×2 (08:18→17:17)
[2020-07-31] MEDS: dexAMETHasone 10 MG/ML VIAL IV SCH ×2 (08:18→08:33)
[2020-07-31] MEDS: BENZTROPINE 1 MG TAB PO SCH ×3 (08:19→20:24)
[2020-07-31] MEDS: PROPRANOLOL HCL 40 MG TAB PO SCH ×3 (08:19→20:26)
[2020-07-31] MEDS: FLUTICASONE 50MCG NASAL SPRAY NAS SCH (08:19)
[2020-07-31] MEDS: CEFEPIME/SWI 1gm 10 ML IVP SCH ×2 (08:21→20:28)
[2020-07-31] MEDS: ENOXAPARIN 40 MG/0.4 ML SQ SCH (09:48)
--- NOTE | 2020-07-31 10:47 | P.PN ---
Subjective Date of Service: 07/31/20 Chief Complaint: Dehydration and altered mental status Subjective: No new changes (Patient continues to be sleepy. He is not very interactive this morning. Review of his MAR shows that he was resumed on loxapine, which is no longer a home medication for him.) Physical Examination - Vital Signs Temperature: 99.3 F Blood Pressure: 147/80 Pulse: 83 Respirations: 24 Pulse Ox (%): 96 - Physical Exam General: Other (somnolent) HEENT: Atraumatic, Other (microcephaly), EOMI Neck: Supple Respiratory: Clear to auscultation bilaterally, Normal air movement Cardiovascular: No edema, Normal pulses, Regular rate/rhythm, Normal S1 S2 Gastrointestinal: Normal bowel sounds, Soft and benign, No tenderness, Distended Musculoskeletal: No clubbing, No swelling, No contractures, No erythema, No tenderness, No warmth Neurological: Other (guarded) Assessment & Plan Physician Review Additional Text: Assessment Patient is a 54-year-old male with mental retardation, hypertension and type 2 diabetes mellitus. He was sent from his senior living due to concern of change in mental status. Basic labs obtained during his hospital status showed mildly supratherapeutic valproic acid, which normalized the following day. He tested positive for COVID 19. Otherwise, He had a negative CT head and chest x-ray. He was saturating well on room air. However, he stayed in the hospital due to persistent fever spikes. Sepsis work up so far is negative todate. He has been empirically started on cefepime pending finalization of cultures. COVID 19 Developmental delay Type II diabetes mellitus plan: Continue hospital stay Start dexamethasone, vitamin C, vitamin B1 and zinc DVT ppx with lovenox Insulin sliding scale while on dexamethasone
[2020-07-31] MEDS: ACETAMINOPHEN 500 MG TAB PO PRN (15:58)
[2020-07-31] MEDS ORDERED: BISACODYL E.C. 5 MG TAB PO SCH (17:00)
[2020-07-31] MEDS: OXcarbazepine 150 MG TAB PO SCH (20:25)
[2020-08-01] MEDS: ACETAMINOPHEN 500 MG TAB PO PRN ×2 (01:33→06:52)
[2020-08-01] MEDS ORDERED: carvediloL 12.5 MG TAB PO SCH (06:59)
[2020-08-01] MEDS: CEFEPIME/SWI 1gm 10 ML IVP SCH (07:16)
[2020-08-01] MEDS: PROPRANOLOL HCL 40 MG TAB PO SCH (07:17)
[2020-08-01] MEDS: ASCORBIC ACID 500 MG TABLET PO SCH (07:18)
[2020-08-01] MEDS: BENZTROPINE 1 MG TAB PO SCH (07:18)
[2020-08-01] MEDS: VITAMIN D 5,000 UNIT CAP PO SCH (07:18)
[2020-08-01] MEDS: THIAMINE HCL 100 MG TABLET PO SCH (07:18)
[2020-08-01] MEDS: ZINC SULFATE 220 MG CAP PO SCH (07:18)
[2020-08-01] MEDS: dexAMETHasone 10 MG/ML VIAL IV SCH (07:19)
[2020-08-01] MEDS: DOCUSATE NA 100 MG CAP PO SCH (07:19)
[2020-08-01] MEDS: Bifidobacterium Infantis [Align] 4 MG PO SCH (07:20)
[2020-08-01] MEDS: ILOPERIDONE 12 MG PO SCH (07:21)
[2020-08-01] MEDS: ENOXAPARIN 40 MG/0.4 ML SQ SCH (07:21)
[2020-08-01] MEDS: DEXTROMETHORPHAN HBR 15 MG PO SCH (07:21)
[2020-08-01] MEDS: INSULIN -REGULAR HUMAN 50 UNIT/0.5 ML ML SQ SCH ×2 (07:30→11:30)
[2020-08-01] MEDS: FLUTICASONE 50MCG NASAL SPRAY NAS SCH (07:53)
[2020-08-01] MEDS: NA CHLORIDE 0.9% 1,000 ML IV SCH (08:19)
[2020-08-01 09:24] LABS: C-Reactive Protein 59.3 mg/L (<3.00)
--- NOTE | 2020-08-01 09:51 | P.CNS ---
Date of Consult: 08/01/20 Reason for Consult: Fever Chief Complaint: Fever positive for beyer virus History of Present Illness: Patient is 54 years of age with cognitive impairment lives in a longterm brought to the emergency room with altered mental status any as some mild fever currently he is very alert responsive has borderline temperature chest x-rays clear there is no evidence of any sepsis CRP mildly elevated he has no new complaints Allergies hydrochlorothiazide Allergy (Verified 07/30/20 04:27) Unknown Home Medications: Benztropine Mesylate 2 mg PO TID 01/18/18 Cholecalciferol (Vitamin D3) [Vitamin D3] 5,000 units PO DAILY 01/18/18 Divalproex Sodium [Depakote] 500 mg PO BID 01/18/18 Docusate [Colace Cap*] 100 mg PO BIDL 01/18/18 Doxycycline Hyclate [Targadox] 20 mg PO BIDL 01/18/18 Iloperidone [Fanapt] 12 mg PO BID 01/18/18 Metformin ER [Glucophage ER*] 500 mg PO DAILY WITH BREAKFAST 01/18/18 Oxcarbazepine [Trileptal] 600 mg PO BEDTIME 01/18/18 Propranolol [Inderal*] 20 mg PO TID 01/18/18 Simvastatin 40 mg PO BEDTIME 01/18/18 Acetaminophen [Tylenol] 650 mg PO Q4HP PRN 07/30/20 Bifidobacterium Infantis [Align] 4 mg PO DAILY 07/30/20 Bisacodyl [Dulcolax] 5 mg PO M,W,F 07/30/20 Bismuth Subsalicylate [Bismatrol] 262 mg PO PRN PRN 07/30/20 Dextromethorphan HBr [Tussin Cough] 15 mg PO BID 07/30/20 Diphenhydramine [Benadryl*] 25 mg PO Q4HP PRN MDD 200 07/30/20 Divalproex Sodium 250 mg PO SEECOM 07/30/20 Guaifenesin [Diabetic Tussin Ex] 100 mg PO Q4HP PRN MDD 600 07/30/20 Loratadine [Claritin*] 10 mg PO DAILYPRN PRN MDD 10 07/30/20 Loxapine [Adasuve] 25 mg PO DAILY 07/30/20 Loxapine [Adasuve] 50 mg PO BEDTIME 07/30/20 Magnesium Hydroxide [Milk of Magnesia] 400 mg PO DAILYPRN PRN 07/30/20 Mometasone Furoate [Nasonex] 50 mcg NS DAILY 07/30/20 carvediloL [Carvedilol] 6.25 mg PO BID 07/30/20 polyethylene glycoL 3350 [Polyethylene Glycol 3350] 17 gm PO TIDP PRN 07/30/20 - Past Medical/Surgical History Diabetic: Yes -: Hypertension -: Diabetes type 2 -: Seizure disorder -: constipation -: depression -: facet arhtritis -: gingivitis -: Moderate MR -: schitzophrenia -: neuroleptic parkinsons - Family History Father Notes: pt not good historian - Social History Alcohol use: No CD- Drugs: No Caffeine use: Yes Place of Residence: Home (snf) Review of Systems 10-point ROS is otherwise unremarkable General: Weakness Physical Examination Temp Pulse Resp BP Pulse Ox 98.9 F 95 H 23 H 128/89 97 08/01/20 09:10 08/01/20 08:00 08/01/20 08:00 08/01/20 08:00 08/01/20 08:00 General: Alert, Oriented x2 Respiratory: Clear to auscultation bilaterally Cardiovascular: No edema, Normal S1 S2 - Problems (1) Fever Current Visit: Yes Status: Acute Plan: Patient is 54 years of age with a history of for beyer virus infection admitted with fever he is doing well not requiring oxygen chest x-rays clear CRP is mildly elevated this quite possible that he also has a mild pneumonia recommend discharge home on low-dose prednisone 10 mg twice a day for a week possibility of aspiration consider Augmentin elix for week stable to be discharged follow-up with me in a week patient does not qualify for home O2 Qualifiers: Fever type: unspecified Qualified Code(s): R50.9 - Fever, unspecified
[2020-08-01 09:59] VITALS: TEMP 97.1
--- NOTE | 2020-08-01 10:51 | P.DS ---
Admission Date: 07/30/20 Discharge Date: 08/01/20 Disposition: ROUTINE DISCHARGE Discharge Condition: GOOD Reason for Admission: Fever positive for beyer virus Brief History of Present Illness: Please refer to H&P Hospital Course: Patient is a 54-year-old male with mental retardation, hypertension and type 2 diabetes mellitus. He was admitted to the hospital due to concern of change in mental status. Basic work up revealed that he was positive for COVID 19. Patient was saturating well on room air at 96%. On basic evaluation, he had nonlabored breathing. His hospital course was delayed by daily fever spikes. Blood cultures were negative. He has been placed on dexamethasone, mulivitamins and zinc supplements. Pulmonology also recommended augmentin due to suspicion of aspiration pneumonia. Patient will be discharged on a short course of corticosteroids, vitmain C, B1 and zinc. Pulmonary will arrange for an outpatient tele visit to assess progress. Vital Signs/Physical Exam: Temp Pulse Resp BP Pulse Ox 97.1 F 95 H 23 H 128/89 97 08/01/20 09:59 08/01/20 08:00 08/01/20 08:00 08/01/20 08:00 08/01/20 08:00 General: Cooperative, Mild distress HEENT: Atraumatic, Other (microcephaly), EOMI Neck: Supple Respiratory: Clear to auscultation bilaterally, Normal air movement Cardiovascular: No edema, Normal pulses, Regular rate/rhythm, Normal S1 S2 Gastrointestinal: Normal bowel sounds, Soft and benign, Non-distended, No tenderness Musculoskeletal: No clubbing, No swelling, No contractures, No erythema, No tenderness, No warmth Neurological: Normal speech, Normal affect Laboratory Data at Discharge: WBC 5.9 K/uL (4.3-10.9) 07/30/20 13:13 Hgb 12.5 g/dL (13.6-17.9) L 07/30/20 13:13 Hct 36.9 % (39.6-49.0) L 07/30/20 13:13 Plt Count 138 K/uL (152-406) L 07/30/20 13:13 PT 12.2 SECONDS (9.5-12.5) 07/29/20 16:30 INR 1.03 07/29/20 16:30 Sodium 138 mmol/L (136-145) 07/30/20 04:29 Potassium 3.5 mmol/L (3.5-5.1) 07/30/20 04:29 BUN 10 mg/dL (7-18) 07/30/20 04:29 Creatinine 0.70 mg/dL (0.55-1.3) 07/30/20 04:29 Glucose 103 mg/dL (74-106) 07/30/20 04:29 Magnesium 2.0 mg/dL (1.8-2.4) 07/29/20 16:30 Total Bilirubin 0.3 mg/dL (0.2-1.0) 07/29/20 16:30 AST 20 U/L (15-37) 07/29/20 16:30 ALT 12 U/L (12-78) 07/29/20 16:30 Alkaline Phosphatase 41 U/L (45-117) L 07/29/20 16:30 Home Medications: Benztropine Mesylate 2 mg PO TID 01/18/18 Cholecalciferol (Vitamin D3) [Vitamin D3] 5,000 units PO DAILY 01/18/18 Divalproex Sodium [Depakote] 500 mg PO BID 01/18/18 Docusate [Colace Cap*] 100 mg PO BIDL 01/18/18 Doxycycline Hyclate [Targadox] 20 mg PO BIDL 01/18/18 Iloperidone [Fanapt] 12 mg PO BID 01/18/18 Metformin ER [Glucophage ER*] 500 mg PO DAILY WITH BREAKFAST 01/18/18 Oxcarbazepine [Trileptal] 600 mg PO BEDTIME 01/18/18 Propranolol [Inderal*] 20 mg PO TID 01/18/18 Simvastatin 40 mg PO BEDTIME 01/18/18 Acetaminophen [Tylenol] 650 mg PO Q4HP PRN 07/30/20 Bifidobacterium Infantis [Align] 4 mg PO DAILY 07/30/20 Bisacodyl [Dulcolax] 5 mg PO M,W,F 07/30/20 Bismuth Subsalicylate [Bismatrol] 262 mg PO PRN PRN 07/30/20 Dextromethorphan HBr [Tussin Cough] 15 mg PO BID 07/30/20 Diphenhydramine [Benadryl*] 25 mg PO Q4HP PRN MDD 200 07/30/20 Divalproex Sodium 250 mg PO SEECOM 07/30/20 Guaifenesin [Diabetic Tussin Ex] 100 mg PO Q4HP PRN MDD 600 07/30/20 Loratadine [Claritin*] 10 mg PO DAILYPRN PRN MDD 10 07/30/20 Loxapine [Adasuve] 25 mg PO DAILY 07/30/20 Loxapine [Adasuve] 50 mg PO BEDTIME 07/30/20 Magnesium Hydroxide [Milk of Magnesia] 400 mg PO DAILYPRN PRN 07/30/20 Mometasone Furoate [Nasonex] 50 mcg NS DAILY 07/30/20 polyethylene glycoL 3350 [Polyethylene Glycol 3350] 17 gm PO TIDP PRN 07/30/20 Amox/Clavulanate [Augmentin 875-125 Tab] 1 each PO BID #14 tab 08/01/20 Ascorbic Acid [Vitamin C*] 500 mg PO DAILY #14 tablet 08/01/20 Thiamine HCl [Vitamin B-1*] 100 mg PO DAILY #14 tablet 08/01/20 Zinc Sulfate [Zinc Sulfate*] 220 mg PO DAILY #14 cap 08/01/20 carvediloL [Coreg*] 12.5 mg PO BID 6AM 6PM tab 08/01/20 predniSONE [Deltasone] 10 mg PO DAILY #28 tab 08/01/20 New Medications: Amox/Clavulanate [Augmentin 875-125 Tab] 1 each PO BID #14 tab predniSONE [Deltasone] 10 mg PO DAILY #28 tab Thiamine HCl [Vitamin B-1*] 100 mg PO DAILY #14 tablet Ascorbic Acid [Vitamin C*] 500 mg PO DAILY #14 tablet Zinc Sulfate [Zinc Sulfate*] 220 mg PO DAILY #14 cap Diet: Regular Followup: OOT,OOT [Primary Care Provider] - 1 Week (Please follow with your primary care doctor in one week. )
[2020-08-01 11:04] VITALS: O2SAT 95
[2020-08-01 12:28] VITALS: BP 130/92
[2020-08-01] MEDS ORDERED: DIVALPROEX DR 250 MG TAB PO SCH (16:00)
[2020-08-01] MEDS ORDERED: DIVALPROEX DR 500MG TAB PO SCH (21:00)
== END 2020-08-01 12:04 | disposition home or self-care (01) | DRG 177 ==
LOC: ER 15:31 → ERHOLD 19:14 → 3RD-ICU 23:04 → OBSVTOIN 07-30 12:47
PROVIDERS: ADMIT Internal Medicine; ATTEND Internal Medicine
DX: U07.1 COVID-19 (principal); J69.0 Pneumonitis due to inhalation of food and vomit; E11.9 Type 2 diabetes mellitus without complications; I10 Essential (primary) hypertension; E86.0 Dehydration; F79 Unspecified intellectual disabilities; K59.09 Other constipation; T42.6X1A Poisoning by other antiepileptic and sedative-hypnotic drugs, accidental (unintentional), initial encounter; R62.50 Unspecified lack of expected normal physiological development in childhood; Z88.8 Allergy status to other drugs, medicaments and biological substances; Z79.84 Long term (current) use of oral hypoglycemic drugs; Z79.899 Other long term (current) drug therapy
CPT/HCPCS: 36415; 51702; 70450; 71045; 74018; 80048; 80076; 80164; 80307; 81003; 81015; 82140; 82550; 82947; 83605; 83735; 83880; 84145; 84484; 85025; 85379; 85610; 86140; 87040; 93005; 96360; 96361; 99285; G0378; J0692; J1100; J1650; J7030; U0003

== ENCOUNTER 2020-08-05 14:14 | Inpatient (IN) | payer OTHER ==
--- OUTSIDE RECORDS SUMMARY | 2020-08-05 14:20 | XMS REPORT | Continuity of Care Document ---
:1965 Author Organization [facility] t Address [address] [place] [address] Care Team Providers Name Role Phone District), Co [facility] Testing (Not Health Attending Clinician Lab, Fam [...] Clinicians Facility Department ID 2020-07-29 2020-07-29 Telephone District), CHRISTINE [id number] 00:00:00 00:00:00 [facility] [id number] [facility] [id number] Testing [phone] (Not Health 019 2020-07-27 2020-07-27 Laboratory Lab, [facility] [id number] 16:08:25 16:28:25 Only [facility] [id number] [place] [id number] [facility] [phone] [address] Results This patient has no known results.
[2020-08-05 14:54] LABS: Arterial Blood Carboxyhemoglob 1.3 % (0-1.5)
--- NOTE | 2020-08-05 15:22 | RAD REPORT ---
EXAM DESCRIPTION: RAD - Chest Single View - 08/05/2020 3:05 pm CLINICAL HISTORY: ams, shortness of breath COMPARISON: July 30, 2020 TECHNIQUE: AP portable chest image was obtained 08/05/2020 3:05 pm . FINDINGS: Lung volumes are low. Patchy airspace opacification present in the mid left lung field. As sessment is difficult due to the low lung volumes. Trachea is midline. Significant failure or volume overload are not suspected. Heart and vasculature are normal. No measurable pleural effusion and no pneumothorax. No acute bony abnormality seen. No acute aortic findings suspected. IMPRESSION: Limited portable study. Findings are suspicious for left lung field pneumonia.
--- NOTE | 2020-08-05 16:01 | RAD REPORT ---
EXAM DESCRIPTION: CT - Head Brain Wo Cont - 08/05/2020 3:41 pm CLINICAL HISTORY: ams COMPARISON: Head Brain Wo Cont dated 07/29/2020 TECHNIQUE: Axial 5 mm thick images of the head were obtained without IV contrast. All CT scans are performed using dose optimization technique as appropriate and may include automated exposure control or mA/KV adjustment according to patient size. FINDINGS: No intracranial hemorrhage, mass, edema or shift of mid-line structures. No acute infarcti on changes seen. No abnormal extra-axial fluid collections. Cerebral and cerebellar atrophy changes a re present with ventricles in proportion. Chronic ischemic changes are present. Intracranial findings are similar to the short interval July 29 study. Mastoid air cells are clear. Chronic left maxillary sinusitis changes noted. No acute bony findings. IMPRESSION: No acute intracranial finding identified. Above detailed findings stable from short interval July 29 study.
--- NOTE | 2020-08-05 16:14 | RAD REPORT ---
EXAM DESCRIPTION: CT - Chest For Pe Angio - 08/05/2020 3:46 pm CLINICAL HISTORY: ams COMPARISON: No comparisons TECHNIQUE: Dynamically enhanced 3 mm thick images of the chest were obtained during administration o f approximately 150mL Isovue 370 IV contrast. Coronal and oblique MIP reconstruction images were gene rated and reviewed. Exam utilizes a protocol to evaluate the pulmonary arterial tree. All CT scans are performed using dose optimization technique as appropriate and may include automated exposure control or mA/KV adjustment according to patient size. FINDINGS: No pulmonary emboli are identified. Far peripheral segmental and subsegmental branch asses sment is limited due to motion. No suspicion for for peripheral pulmonary embolic disease. The aorta as imaged shows no acute or suspicious finding. No pericardial thickening or effusion. Patient has numerous ground-glass opacities scattered throughout all lobes. These are primarily in a peripheral distribution. Findings are worse in the left upper lobe. No cavitation. No large focal con solidated mass seen. No malignant appearing lung mass. Small pleural effusions are present at each ba se. No pneumothorax. No pleural based mass. No mediastinal or hilar suspicious masses. No chest wall masses or abnormal axillary lymphadenopathy. IMPRESSION: No pulmonary emboli identified. Numerous ground-glass opacities scattered in the lung lott.This is a bilateral pneumonia [place] for COVID-19 pneumonia in the current clinical environment.
[2020-08-05 16:58] LABS: Barbiturates NEGATIVE (NEGATIVE); Benzodiazepines NEGATIVE (NEGATIVE); Cocaine NEGATIVE (NEGATIVE); METHAMPHETAM NEGATIVE (NEGATIVE); Methadone NEGATIVE (NEGATIVE); Opiates NEGATIVE (NEGATIVE); Phencyclidine NEGATIVE (NEGATIVE); THC Cannibis NEGATIVE (NEGATIVE)
[2020-08-05 17:13] LABS: Urine Blood NEGATIVE (NEG); Urine Glucose NEGATIVE (NEG); Urine Protein 1+ (NEG); Urine Specific Gravity 1.025 (1.005-1.030)
[2020-08-05 17:37] LABS: Basophils % 0.3 % (0-1.3); Hematocrit 34.3 % (39.6-49.0); Lymphocytes % 8.9 % (15.3-44.8); MPV 10.3 fL (7.6-11.3); Protime INR 1.16
[2020-08-05 17:45] LABS: ALT/SGPT 37 U/L (12-78); AST/SGOT 93 U/L (15-37); Albumin 2.3 g/dL (3.4-5.0); Alkaline Phosphatase 47 U/L (45-117); BUN Blood Urea Nitrogen 20 mg/dL (7-18); Bicarbonate 26 mmol/L (21-32); Bilirubin Direct 0.1 mg/dL (0-0.2); Bilirubin Total 0.4 mg/dL (0.2-1.0); Glucose Level 100 mg/dL (74-106); Magnesium 2.6 mg/dL (1.8-2.4); NT PRO-BNP 54 pg/mL (<125); Potassium 4.1 mmol/L (3.5-5.1); Protein, Total 7.2 g/dL (6.4-8.2); Sodium Level 135 mmol/L (136-145); Troponin (Emerg Dept Use Only) < 0.02 ng/mL (0.0-0.045)
--- NOTE | 2020-08-05 19:40 | ER ---
Nurse's Notes [facility] Name: Erich Houser Jr Age: 54 yrs Sex: Male : 1965 Arrival Date: 08/05/2020 Time: 14:15 Bed 7 Private MD: Diagnosis: Pneumonia;Syncope Presentation: 08/05 14:17 Chief complaint: EMS states: called out for "unresponsive" on scene pt would respond to em tactile stimuli, pt answers question but is slow to respond, hx of bipolar/schizophrenia, tested pos. for covid 1 week ago. Coronavirus screen: Client reports previous positive COVID test result. Date of collection: July 29, 2020. Ebola Screen: Patient negative for fever greater than or equal to 101.5 degrees Fahrenheit, and additional compatible Ebola Virus Disease symptoms Patient denies exposure to infectious person. Patient denies travel to an Ebola-affected area in the 21 days before illness onset. No symptoms or risks identified at this time. Initial Sepsis Screen: Does the patient meet any 2 criteria? No. Patient's initial sepsis screen is negative. Does the patient have a suspected source of infection? No. Patient's initial sepsis screen is negative. Risk Assessment: Do you want to hurt yourself or someone else? Patient reports no desire to harm self or others. Onset of symptoms was August 05, 2020. 14:17 Method Of Arrival: EMS: [facility] em 14:17 Acuity: JIGNESH 3 em Historical: - Allergies: 14:21 Hydrochlorothiazide; em - PMHx: 14:21 CONSTIPATION - CHRONIC; Depression; Diabetes - NIDDM; FACET ARTHRITIS; gingivitis; em Hypertension; IMPULSE CONTROL DISORDER; LEGG-PERTHES DS; MODERATE MR; NEUROLEPTIC PARKSINSON'S; pseudobulbar affect; SCHIZOTYPAL PERSONALITY DISORDER; Seizures; - Immunization history:: Adult Immunizations unknown. - Social history:: Smoking status: unknown. Screenin:21 Abuse screen: Denies threats or abuse. Nutritional screening: No deficits noted. em Tuberculosis screening: No symptoms or risk factors identified. Fall Risk Secondary diagnosis (15 points) seizures. Assessment: 14:17 General: Appears in no apparent distress. comfortable, Behavior is flat, quiet. Pain: em Unable to use pain scale. FLACC scale score is 0 out of 10. Neuro: Level of Consciousness is awake, alert. Cardiovascular: Capillary refill < 3 seconds Patient's skin is warm and dry. Respiratory: Airway is patent Respiratory effort is even, unlabored, Respiratory pattern is regular, symmetrical. Derm: Skin is intact, is healthy with good turgor, Skin is pink, warm \\T\\ dry. Musculoskeletal: Capillary refill < 3 seconds, Range of motion: intact in all extremities. 16:02 Reassessment: Patient appears in no apparent distress at this time. Patient and/or em family updated on plan of care and expected duration. Pain level reassessed. 16:29 Reassessment: Patient appears in no apparent distress at this time. Patient and/or ph family updated on plan of care and expected duration. Pain level reassessed. Pt awake, states, " I have to pee!!" Provided w/ urinal, urine sample obtained, pt then fell back asleep, awakens easily, denies SOB or pain, VSS. 17:35 Reassessment: Patient appears in no apparent distress at this time. Patient and/or em family updated on plan of care and expected duration. Pain level reassessed. Patient is alert, oriented x 3, equal unlabored respirations, skin warm/dry/pink. 18:30 Reassessment: Patient appears in no apparent distress at this time. No changes from em previously documented assessment. Patient and/or family updated on plan of care and expected duration. Pain level reassessed. 19:28 Reassessment: able to stand on the bedside, labored breathing noted to 30's cpm O2 sat rr5 went down to 90% hooked to oxygen \\T\\ 3 liters via nasal cannula O2 sat to 96%. 20:05 General: Appears in no apparent distress. comfortable, Behavior is cooperative, flat, rr5 quiet. Pain: Unable to use pain scale. Patient appears quiet. Neuro: Level of Consciousness is awake, alert, slow to respond. Cardiovascular: Capillary refill < 3 seconds Patient's skin is warm and dry. Respiratory: Airway is patent Respiratory effort is even, unlabored, Respiratory pattern is regular, symmetrical, tachypnea. GI: No signs and/or symptoms were reported involving the gastrointestinal system. : No signs and/or symptoms were reported regarding the genitourinary system. Derm: Skin is intact, is healthy with good turgor, Skin is pink, warm \\T\\ dry. Musculoskeletal: Capillary refill < 3 seconds. Vital Signs: 14:17 BP 136 / 88; Pulse 78; Resp 18; Temp 97.6; Pulse Ox 99% on R/A; em 15:00 BP 137 / 88; Pulse 88; Resp 18; Pulse Ox 99% on R/A; em 16:31 BP 137 / 88; Pulse 71; Resp 20; Pulse Ox 95% on R/A; ph 17:32 BP 131 / 77; Pulse 73; Resp 20; Pulse Ox 96% on R/A; ph 19:28 BP 109 / 68; Pulse 76; Resp 30; Temp 98; Pulse Ox 90% on R/A; rr5 19:30 Pulse Ox 96% on 3 lpm NC; rr5 20:02 BP 133 / 95; Pulse 90; Resp 24; Pulse Ox 94% on R/A; rr5 21:01 BP 135 / 90; Pulse 66; Resp 22; Temp 98.4; Pulse Ox 95% ; rr5 16:31 pt asleep ph ED Course: 14:15 Patient arrived in ED. ds1 14:16 Omkar High, RN is Primary Nurse. em 14:20 Triage completed. em 14:21 Arm band placed on. em 14:21 Patient has correct armband on for positive identification. Bed in low position. Call em light in reach. Side rails up X2. Pulse ox on. NIBP on. 14:24 James Cui PA is PHCP. jmm 14:24 Dharmesh Zaldivar MD is Attending Physician. jmm 15:05 XRAY Chest (1 view) In Process Unspecified. EDMS 15:42 CT Head Brain wo Cont In Process Unspecified. EDMS 15:46 CT Chest For PE Angio In Process Unspecified. EDMS 16:30 Initial lab(s) drawn, by me, sent to lab. Inserted saline lock: 20 gauge in right ph antecubital area, using aseptic technique. Blood collected. 19:39 Arvin Hale MD is Hospitalizing Provider. [facility] 21:01 No provider procedures requiring assistance completed. Patient admitted, IV remains in rr5 place. intact, No redness/swelling at site. Administered Medications: 20:02 Drug: Decadron - Dexamethasone 10 mg Route: IVP; Site: right antecubital; rr5 21:02 Follow up: Response: No adverse reaction rr5 Outcome: 19:39 Decision to Hospitalize by Provider. husam 21:01 Admitted to ICU accompanied by tech, via stretcher, room icu 2, with chart, Report rr5 called to seymour 21:01 Condition: stable 21:01 Instructed on the need for admit. 21:22 Patient left the ED. wh Signatures: Dispatcher [employer] James Ware PA PA jmm Munoz, Edgar, RN RN Teresa Mccormack ds1 Cherelle Schneider, ELLIE ARGUETA Americo Salvador Arvin Goldman, ELLIE RN rr5
--- NOTE | 2020-08-05 19:40 | EDPHYS ---
Physician Documentation [facility] Name: Erich Houser Jr Age: 54 yrs Sex: Male : 1965 Arrival Date: 08/05/2020 Time: 14:15 Bed 7 Private MD: ED Physician Dharmesh Zaldivar HPI: 08/05 19:50 This 54 yrs old Black Male presents to ER via EMS with complaints of ams, sob. jmm 19:50 The patient has shortness of breath at rest. Onset: The symptoms/episode began/occurred jmm gradually. 19:50 Duration: The symptoms are continuous. The patient's shortness of breath is aggravated jmm by nothing, is alleviated by nothing. This is a 54 year old male with a history of DM, that presents to the ED with shortness of breath and an episode of ams according to the [facility]. Patient is arousable and answers questions. Patient was diagnosed wtihCOVID 19 1 week ago. . Historical: - Allergies: 14:21 Hydrochlorothiazide; em - PMHx: 14:21 CONSTIPATION - CHRONIC; Depression; Diabetes - NIDDM; FACET ARTHRITIS; gingivitis; em Hypertension; IMPULSE CONTROL DISORDER; LEGG-PERTHES DS; MODERATE MR; NEUROLEPTIC PARKSINSON'S; pseudobulbar affect; SCHIZOTYPAL PERSONALITY DISORDER; Seizures; - Immunization history:: Adult Immunizations unknown. - Social history:: Smoking status: unknown. ROS: 19:50 Constitutional: Negative for fever, chills, and weight loss, Cardiovascular: Negative jmm for chest pain, palpitations, and edema. 19:50 Respiratory: Positive for cough, shortness of breath. 19:50 All other systems are negative. Exam: 19:50 Head/Face: atraumatic. Eyes: EOMI, no conjunctival erythema appreciated ENT: Moist jmm Mucus Membranes Neck: Trachea midline, Supple Chest/axilla: Normal chest wall appearance and motion. Cardiovascular: Regular rate and rhythm. No edema appreciated 19:50 Abdomen/GI: Non distended, soft Back: Normal ROM Skin: General appearance color normal MS/ Extremity: Moves all extremities, no obvious deformities appreciated, no edema noted to the lower extremities 19:50 Constitutional: The patient appears alert, awake. 19:50 Respiratory: the patient does not display signs of respiratory distress, Respirations: normal, Breath sounds: + upper airway congestion. 19:50 Neuro: Orientation: Mentation: able to follow commands, Motor: moves all fours. 19:50 Psych: Behavior/mood is depressed. Vital Signs: 14:17 BP 136 / 88; Pulse 78; Resp 18; Temp 97.6; Pulse Ox 99% on R/A; em 15:00 BP 137 / 88; Pulse 88; Resp 18; Pulse Ox 99% on R/A; em 16:31 BP 137 / 88; Pulse 71; Resp 20; Pulse Ox 95% on R/A; ph 17:32 BP 131 / 77; Pulse 73; Resp 20; Pulse Ox 96% on R/A; ph 19:28 BP 109 / 68; Pulse 76; Resp 30; Temp 98; Pulse Ox 90% on R/A; rr5 19:30 Pulse Ox 96% on 3 lpm NC; rr5 20:02 BP 133 / 95; Pulse 90; Resp 24; Pulse Ox 94% on R/A; rr5 21:01 BP 135 / 90; Pulse 66; Resp 22; Temp 98.4; Pulse Ox 95% ; rr5 16:31 pt asleep ph MDM: 14:27 Patient medically screened. [facility] 19:34 Data reviewed: vital signs, nurses notes. Counseling: I had a detailed discussion with husam the patient and/or guardian regarding: the historical points, exam findings, and any diagnostic results supporting the discharge/admit diagnosis, lab results, radiology results, the need for further work-up and treatment in the hospital. ED course: I discussed the patient with Alfredo Crocker whom accepted the patient for Dr. Hale. . 08/05 14:34 Order name: Basic Metabolic Panel; Complete Time: 18:15 [facility] 08/05 14:34 Order name: CBC with Diff; Complete Time: 18:00 [facility] 08/05 14:34 Order name: LFT's; Complete Time: 18:15 [facility] 08/05 14:34 Order name: Magnesium; Complete Time: 18:15 [facility] 08/05 14:34 Order name: NT PRO-BNP; Complete Time: 18:15 [facility] 08/05 14:34 Order name: PT-INR; Complete Time: 18:00 [facility] 08/05 14:34 Order name: Troponin (emerg Dept Use Only); Complete Time: 18:15 [facility] 08/05 14:34 Order name: ABG; Complete Time: 15:12 [facility] 08/05 14:56 Order name: ETOH Level; Complete Time: 18:15 [facility] 08/05 14:56 Order name: Urine Drug Screen; Complete Time: 17:04 [facility] 08/05 14:56 Order name: Asprin; Complete Time: 18:15 [facility] 08/05 15:08 Order name: Tylenol Level; Complete Time: 18:15 [facility] 08/05 16:33 Order name: Urine Dipstick--Ancillary (enter results); Complete Time: 17:16 08/05 14:34 Order name: XRAY Chest (1 view); Complete Time: 15:26 [facility] 08/05 14:34 Order name: EKG; Complete Time: 14:35 [facility] 08/05 14:34 Order name: Cardiac monitoring; Complete Time: 15:57 [facility] 08/05 14:34 Order name: EKG - Nurse/Tech; Complete Time: 17:36 [facility] 08/05 14:34 Order name: IV Saline Lock; Complete Time: 16:29 [facility] 08/05 14:34 Order name: Labs collected and sent; Complete Time: 15:57 [facility] 08/05 14:34 Order name: O2 Per Protocol; Complete Time: 15:57 [facility] 08/05 14:34 Order name: O2 Sat Monitoring; Complete Time: 15:56 [facility] 08/05 15:08 Order name: CT Head Brain wo Cont; Complete Time: 16:04 [facility] 08/05 15:28 Order name: CT Chest For PE Angio; Complete Time: 16:38 [facility] 08/05 16:46 Order name: Labs - recollect needed: recollect all labs; Complete Time: 17:36 08/05 17:54 Order name: Misc. Order: walking o2; Complete Time: 19:28 [facility] 08/05 19:54 Order name: CRP; Complete Time: 20:42 la1 Administered Medications: 20:02 Drug: Decadron - Dexamethasone 10 mg Route: IVP; Site: right antecubital; rr5 21:02 Follow up: Response: No adverse reaction rr5 Disposition: 08/06 05:30 Co-signature as Attending Physician, Dharmesh Zaldivar MD I agree with the assessment and sean plan of care. Disposition: 08/05/20 19:39 Hospitalization ordered by Arvin Hale for Observation. Preliminary diagnosis are Pneumonia, Syncope. - Bed requested for Intensive Care Unit. - Status is Observation. - Condition is Stable. - Problem is new. - Symptoms are unchanged. Signatures: Dispatcher [employer] EDOK Chandni Ford Corey, MD MD cha Mickail, Joel, PA PA [facility] Omkar High, RN RN Sherlyn Brandon, RN RN tl1 Americo Salvador Arvin Goldman, RN RN rr5 Corrections: (The following items were deleted from the chart) 08/05 14:58 14:56 SALICYLATE+C.LAB.BRZ ordered. [facility] 19:52 19:50 Onset: The symptoms/episode began/occurred gradually, [facility] 20:37 19:39 Hospitalization Ordered by Arvin Hale MD for Observation. Preliminary 1 diagnosis is Pneumonia; Syncope. Bed requested for Telemetry/MedSurg (observation). Status is Observation. Condition is Stable. Problem is new. Symptoms are unchanged. [facility] 21:22 20:37 08/05/2020 19:39 Hospitalization Ordered by Arvin Hale MD for Observation. Preliminary diagnosis is Pneumonia; Syncope. Bed requested for Intensive Care Unit. Status is Observation. Condition is Stable. Problem is new. Symptoms are unchanged. tl1
[2020-08-05] MEDS ORDERED: dexAMETHasone 10 MG/ML VIAL ONE (20:02)
[2020-08-05] MEDS ORDERED: MELATONIN 5 MG TABLET PO PRN (21:28)
[2020-08-05] MEDS ORDERED: ONDANSETRON 4 MG/2 ML VIAL IV PRN (21:28)
[2020-08-05] MEDS: INSULIN -REGULAR HUMAN 50 UNIT/0.5 ML ML SQ SCH (21:28)
[2020-08-05] MEDS ORDERED: ACETAMINOPHEN 500 MG TAB PO PRN (21:28)
--- NOTE | 2020-08-05 23:40 | P.HP ---
Certification for Inpatient Patient admitted to: Observation With expected LOS: <2 Midnights Patient will require the following post-hospital care: None Practitioner: I am a practitioner with admitting privileges, knowledge of patient current condition, hospital course, and medical plan of care. Services: Services provided to patient in accordance with Admission requirements found in Title 42 Section 412.3 of the Code of Federal Regulations <Alfredo Crocker - Last Filed: 08/05/20 23:35> Patient History Date of Service: 08/05/20 Reason for admission: COVID pneumonia History of Present Illness: 54-year-old male with history of mental disability, diabetes mellitus type 2, schizophrenia presents emergency department with chief complaint of altered mental status. Patient lives in prison here in [place] and it was reported that staff at the prison noticed patient was not acting right. Patient was diagnosed with COVID approximately 1 week ago. Patient was worked up in the emergency department and aside from appearing mildly dehydrated with a sodium 135 and mild elevation white blood cell count 11.3 his workup was unremarkable. ED staff ambulated patient down the [place] and he desaturated to 90% on room air and became moderately tachypneic. ED provider wishes to admit patient under observation status for further evaluation and management. I ordered CRP level which came back elevated at 171. When I saw the patient in the emergency department he was awake, alert. Patient did not converse with me, not sure what his baseline mental status is. Patient does not appear septic, will be admitted under observation. - Past Medical/Surgical History Diabetic: Yes -: Hypertension -: Diabetes mellitus type 2 -: Seizure disorder -: constipation -: depression -: facet arhtritis -: gingivitis -: Moderate MR -: Schizophrenia -: neuroleptic parkinsons Past Surgical History: Unable to obtain Psychosocial/ Personal History: Patient lives in prison - Family History Father Notes: pt not good historian - Social History Alcohol use: No CD- Drugs: No Caffeine use: Yes [facility] <Alfredo Crocker - Last Filed: 08/05/20 23:35> Date of Service: 08/11/20 <Arvin Hale - Last Filed: 08/11/20 14:35> Allergies hydrochlorothiazide Allergy (Verified 07/30/20 04:27) Unknown Home Medications: Benztropine Mesylate 2 mg PO TID 01/18/18 Cholecalciferol (Vitamin D3) [Vitamin D3] 5,000 units PO DAILY 01/18/18 Divalproex Sodium [Depakote] 500 mg PO BID 01/18/18 Docusate [Colace Cap*] 100 mg PO BID 01/18/18 Iloperidone [Fanapt] 12 mg PO BID 01/18/18 Metformin ER [Glucophage ER*] 500 mg PO DAILY WITH BREAKFAST 01/18/18 Oxcarbazepine [Trileptal] 300 mg PO DAILY 01/18/18 Propranolol [Inderal*] 20 mg PO TID 01/18/18 Simvastatin 40 mg PO BEDTIME 01/18/18 Acetaminophen [Tylenol] 650 mg PO Q4HP PRN 07/30/20 Bifidobacterium Infantis [Align] 4 mg PO DAILY 07/30/20 Bisacodyl [Dulcolax] 5 mg PO M,W,F 07/30/20 Bismuth Subsalicylate [Bismatrol] 262 mg PO PRN PRN 07/30/20 Dextromethorphan HBr [Tussin Cough] 15 mg PO BID 07/30/20 Diphenhydramine [Benadryl*] 25 mg PO Q4HP PRN MDD 200 07/30/20 Divalproex Sodium 250 mg PO SEECOM 07/30/20 Guaifenesin [Diabetic Tussin Ex] 10 ml PO Q4HP PRN MDD 600 07/30/20 Loratadine [Claritin*] 10 mg PO DAILYPRN PRN MDD 10 07/30/20 Magnesium Hydroxide [Milk of Magnesia] 30 ml PO DAILYPRN PRN 07/30/20 Mometasone Furoate [Nasonex] 50 mcg NS DAILY 07/30/20 polyethylene glycoL 3350 [Polyethylene Glycol 3350] 17 gm PO TIDP PRN 07/30/20 Ascorbic Acid [Vitamin C*] 500 mg PO DAILY #14 tablet 08/01/20 Thiamine HCl [Vitamin B-1*] 100 mg PO DAILY #14 tablet 08/01/20 Zinc Sulfate [Zinc Sulfate*] 220 mg PO DAILY #14 cap 08/01/20 OXcarbazepine [Trileptal] 600 mg PO BEDTIME 08/06/20 carvediloL [Coreg*] 12.5 mg PO BID 08/06/20 Apixaban [Eliquis] 2.5 mg PO BID 30 Days #60 tablet 08/08/20 predniSONE [Deltasone*] 10 mg PO SEECOM 14 Days #21 tab 08/08/20 Review of Systems is unable to be obtained <Alfredo Crocker - Last Filed: 08/05/20 23:35> Physical Examination - Vital Signs Temperature: 97.8 F Blood Pressure: 147/88 Pulse: 71 Respirations: 22 Pulse Ox (%): 94 - Physical Exam General: Alert, In no apparent distress HEENT: Atraumatic, Normocephalic Neck: Supple Respiratory: Normal air movement, Diminished (Bilaterally) Cardiovascular: Regular rate/rhythm, Normal S1 S2 Capillary refill: <2 Seconds Gastrointestinal: Normal bowel sounds, Soft and benign Musculoskeletal: No contractures, No erythema, No tenderness Integumentary: No significant lesion, No tenderness/swelling, No erythema Neurological: Normal speech, Normal strength at 5/5 x4 extr, Normal tone, Sensation intact - Studies Laboratory Data (last 24 hrs) 08/05/20 17:00: PT 13.7 H, INR 1.16 08/05/20 17:00: WBC 11.3 H D, Hgb 11.7 L, Hct 34.3 L, Plt Count 347 D 08/05/20 17:00: Sodium 135 L, Potassium 4.1, BUN 20 H, Creatinine 0.82, Glucose 100, Magnesium 2.6 H D, Total Bilirubin 0.4, AST 93 H, ALT 37, Alkaline Phosphatase 47 <Alfredo Crocker - Last Filed: 08/05/20 23:35> Assessment and Plan - Plan Assessment COVID pneumonia Diabetes mellitus type 2 Hypertension Schizophrenia Moderate mental retardation Plan COVID pneumonia: Pulmonology consult in place, will trend CRP levels. Daily room air saturations, wean off of oxygen. IV steroids, supplementations. DVT prophylaxis Lovenox 40 mg subcutaneous once daily. Diabetes mellitus type 2: A.c. HS Accu-Cheks, sliding scale insulin therapy. Hypertension: Obtain and continue home medications Schizophrenia: Obtain and continue home medications. Moderate mental retardation: Appears stable at this time. Discharge Plan: Home Plan to discharge in: 24 Hours - Advance Directives Does patient have a Living Will: No Does patient have a Durable POA for Healthcare: No - Code Status/Comfort Care Code Status Assessed: Yes (Full code) Critical Care: No Time Spent Managing Pts Care (In Minutes): 55 <Alfredo Crocker - Last Filed: 08/05/20 23:35> - Plan Plan of care reviewed with Alfredo Crocker. Agree with plan as noted above. <Arvin Hale - Last Filed: 08/11/20 14:35>
[2020-08-05] MEDS: NA CHLORIDE 0.9% 1,000 ML IV SCH (23:59)
[2020-08-05] MEDS: METHYLPREDNISOLONE 40 MG INJ IV SCH (23:59)
[2020-08-05] MEDS: ASCORBIC ACID 500 MG TABLET PO SCH (23:59)
[2020-08-06 05:20] LABS: Absolute Lymphocytes (CBC) 0.6 K/uL (0.7-4.9); Basophils % 0.2 % (0-1.3); Hematocrit 34.4 % (39.6-49.0); Lymphocytes % 5.9 % (15.3-44.8); MPV 10.4 fL (7.6-11.3); RBC Red Blood Cell Count 3.75 M/uL (4.33-5.43)
[2020-08-06 05:39] LABS: ALT/SGPT 31 U/L (12-78); AST/SGOT 63 U/L (15-37); Albumin 2.1 g/dL (3.4-5.0); Alkaline Phosphatase 44 U/L (45-117); BUN Blood Urea Nitrogen 16 mg/dL (7-18); Bicarbonate 29 mmol/L (21-32); Bilirubin Total 0.4 mg/dL (0.2-1.0); Ferritin 721.5 ng/mL (26-388); Glucose Level 125 mg/dL (74-106); Magnesium 2.7 mg/dL (1.8-2.4); Potassium 4.3 mmol/L (3.5-5.1); Protein, Total 6.6 g/dL (6.4-8.2); Sodium Level 137 mmol/L (136-145)
[2020-08-06 06:39] LABS: Urine Appearance CLEAR; Urine Bilirubin NEGATIVE (NEG); Urine Blood NEGATIVE (NEG); Urine Color YELLOW; Urine Glucose NEGATIVE (NEG); Urine Protein NEGATIVE (NEG); Urine Specific Gravity >=1.030 (1.005-1.030)
[2020-08-06 06:53] LABS: Urine Microscopic Reflex NO UMIC
[2020-08-06 07:11] LABS: Blood Morphology Comment NOT SEEN (NOT SEEN); Platelet Estimate ADEQ
[2020-08-06] MEDS: INSULIN -REGULAR HUMAN 50 UNIT/0.5 ML ML SQ SCH ×4 (07:30→20:54)
[2020-08-06] MEDS: VITAMIN D 1000 UNIT TAB PO SCH (09:00)
[2020-08-06] MEDS: ZINC SULFATE 220 MG CAP PO SCH (09:00)
[2020-08-06] MEDS: ASCORBIC ACID 500 MG TABLET PO SCH ×4 (09:00→20:54)
[2020-08-06] MEDS: NA CHLORIDE 0.9% 1,000 ML IV SCH ×2 (09:42→16:52)
[2020-08-06] MEDS: ENOXAPARIN 40 MG/0.4 ML SQ SCH (09:43)
[2020-08-06] MEDS: METHYLPREDNISOLONE 40 MG INJ IV SCH ×2 (09:44→16:50)
--- NOTE | 2020-08-06 16:33 | P.CNS ---
Date of Consult: 08/06/20 Reason for Consult: COVID penumonia Chief Complaint: COVID pneumonia History of Present Illness: Age 54 mentally challenged and schizoaffective disorder aw AMS. Live in a senior care. Dx with COVID a week ago. Low O2 sat.Pt remains altered but arousable. Allergies hydrochlorothiazide Allergy (Verified 07/30/20 04:27) Unknown Home Medications: Benztropine Mesylate 2 mg PO TID 01/18/18 Cholecalciferol (Vitamin D3) [Vitamin D3] 5,000 units PO DAILY 01/18/18 Divalproex Sodium [Depakote] 500 mg PO BID 01/18/18 Docusate [Colace Cap*] 100 mg PO BID 01/18/18 Doxycycline Hyclate [Targadox] 20 mg PO BID 01/18/18 Iloperidone [Fanapt] 12 mg PO BID 01/18/18 Metformin ER [Glucophage ER*] 500 mg PO DAILY WITH BREAKFAST 01/18/18 Oxcarbazepine [Trileptal] 300 mg PO DAILY 01/18/18 Propranolol [Inderal*] 20 mg PO TID 01/18/18 Simvastatin 40 mg PO BEDTIME 01/18/18 Acetaminophen [Tylenol] 650 mg PO Q4HP PRN 07/30/20 Bifidobacterium Infantis [Align] 4 mg PO DAILY 07/30/20 Bisacodyl [Dulcolax] 5 mg PO M,W,F 07/30/20 Bismuth Subsalicylate [Bismatrol] 262 mg PO PRN PRN 07/30/20 Dextromethorphan HBr [Tussin Cough] 15 mg PO BID 07/30/20 Diphenhydramine [Benadryl*] 25 mg PO Q4HP PRN MDD 200 07/30/20 Divalproex Sodium 250 mg PO SEECOM 07/30/20 Guaifenesin [Diabetic Tussin Ex] 10 ml PO Q4HP PRN MDD 600 07/30/20 Loratadine [Claritin*] 10 mg PO DAILYPRN PRN MDD 10 07/30/20 Magnesium Hydroxide [Milk of Magnesia] 30 ml PO DAILYPRN PRN 07/30/20 Mometasone Furoate [Nasonex] 50 mcg NS DAILY 07/30/20 polyethylene glycoL 3350 [Polyethylene Glycol 3350] 17 gm PO TIDP PRN 07/30/20 Amox/Clavulanate [Augmentin 875-125 Tab] 1 each PO BID #14 tab 08/01/20 Ascorbic Acid [Vitamin C*] 500 mg PO DAILY #14 tablet 08/01/20 Thiamine HCl [Vitamin B-1*] 100 mg PO DAILY #14 tablet 08/01/20 Zinc Sulfate [Zinc Sulfate*] 220 mg PO DAILY #14 cap 08/01/20 predniSONE [Deltasone] 10 mg PO DAILY #28 tab 08/01/20 OXcarbazepine [Trileptal] 600 mg PO BEDTIME 08/06/20 carvediloL [Coreg*] 12.5 mg PO BID 08/06/20 - Past Medical/Surgical History Diabetic: Yes -: Hypertension -: Diabetes mellitus type 2 -: Seizure disorder -: constipation -: depression -: facet arhtritis -: gingivitis -: Moderate MR -: Schizophrenia -: neuroleptic parkinsons Psychosocial/ Personal History: Patient lives in senior care - Family History Father Notes: pt not good historian - Social History Smoking Status: Unknown if ever smoked Alcohol use: No CD- Drugs: No Caffeine use: Yes Place of Residence: [facility] Review of Systems 10-point ROS is otherwise unremarkable General: Weakness Respiratory: Shortness of Breath Physical Examination Temp Pulse Resp BP Pulse Ox 97.9 F 75 21 H 145/105 H 95 08/06/20 12:00 08/06/20 14:00 08/06/20 14:00 08/06/20 14:00 08/06/20 14:00 General: Other (Deferred) Laboratory Data (last 24 hrs) 08/06/20 04:58: Sodium 137, Potassium 4.3, BUN 16, Creatinine 0.57, Glucose 125 H, Magnesium 2.7 H, Total Bilirubin 0.4, AST 63 H, ALT 31, Alkaline Phosphatase 44 L 08/06/20 04:58: WBC 10.0, Hgb 11.6 L, Hct 34.4 L, Plt Count 362 08/05/20 17:00: PT 13.7 H, INR 1.16 08/05/20 17:00: WBC 11.3 H D, Hgb 11.7 L, Hct 34.3 L, Plt Count 347 D 08/05/20 17:00: Sodium 135 L, Potassium 4.1, BUN 20 H, Creatinine 0.82, Glucose 100, Magnesium 2.6 H D, Total Bilirubin 0.4, AST 93 H, ALT 37, Alkaline Phosphatase 47 - Problems (1) Altered mental state Current Visit: No Status: Acute Plan: AW AMS. COVID positive. Hypoxic. Tabel CT no PE. Bilaterla infiltrates. Plan for DC back to home on low dose pred. BP is elevated. Plan for discharge/ Anticoagulation Eiquis 2.5 BID ? or aspirin Qualifiers: Altered mental status type: transient alteration of awareness Qualified Code(s): R40.4 - Transient alteration of awareness
--- NOTE | 2020-08-06 17:59 | P.PN ---
Subjective Date of Service: 08/06/20 Chief Complaint: COVID pneumonia Subjective: No new changes (appears comfortabe, sleepy, responsive to loud verbal stimuli - only with yes/no, no sentences) Review of Systems is unable to be obtained Physical Examination - Vital Signs Temperature: 98.0 F Blood Pressure: 148/80 Pulse: 68 Respirations: 19 Pulse Ox (%): 94 - Physical Exam General: In no apparent distress, Other (minimally responsive to loud verbal stimuli) HEENT: PERRLA Neck: Supple Respiratory: Other (non-labored) Cardiovascular: No edema Gastrointestinal: Soft and benign, No tenderness Musculoskeletal: No tenderness Integumentary: No rashes - Studies Laboratory Data (last 24 hrs) 08/06/20 04:58: Sodium 137, Potassium 4.3, BUN 16, Creatinine 0.57, Glucose 125 H, Magnesium 2.7 H, Total Bilirubin 0.4, AST 63 H, ALT 31, Alkaline Phosphatase 44 L 08/06/20 04:58: WBC 10.0, Hgb 11.6 L, Hct 34.4 L, Plt Count 362 08/05/20 17:00: Sodium 135 L, Potassium 4.1, BUN 20 H, Creatinine 0.82, Glucose 100, Magnesium 2.6 H D, Total Bilirubin 0.4, AST 93 H, ALT 37, Alkaline Phosphatase 47 Assessment & Plan Physician Review Additional Text: COVID pneumonia Diabetes mellitus type 2 Altered mental status / lethargy Hypertension Schizophrenia Moderate mental retardation Plan COVID pneumonia: CRP elevated, continue solumedrol, breathing comfortably at this time Pulmonology consult in place, will trend CRP levels. Daily room air saturations, wean off of oxygen. IV steroids, supplementations. DVT prophylaxis Lovenox 40 mg subcutaneous once daily. AMS / lethargy, acute metabolic encephalopathy unclear etiology, possibly from COVID pneumonia arousable to loud verbal stimuli continue to monitor Diabetes mellitus type 2: A.c. HS Accu-Cheks, sliding scale insulin therapy. Hypertension: continue home medications Schizophrenia: continue home medications. Moderate mental retardation: Appears stable at this time. Dispo: anticipate dc back to long-term in 24-48hrs, pending improvement of men tation, improving CRP Time Spent Managing Pts Care (In Minutes): 35
[2020-08-07] MEDS: METHYLPREDNISOLONE 40 MG INJ IV SCH ×3 (00:52→17:12)
[2020-08-07] MEDS: NA CHLORIDE 0.9% 1,000 ML IV SCH ×3 (03:28→15:30)
[2020-08-07 04:05] LABS: Absolute Lymphocytes (CBC) 0.7 K/uL (0.7-4.9); Basophils % 0.5 % (0-1.3); Hematocrit 32.8 % (39.6-49.0); Lymphocytes % 5.9 % (15.3-44.8); MPV 10.2 fL (7.6-11.3); RBC Red Blood Cell Count 3.58 M/uL (4.33-5.43)
[2020-08-07 04:29] LABS: ALT/SGPT 26 U/L (12-78); AST/SGOT 46 U/L (15-37); Alkaline Phosphatase 43 U/L (45-117); BUN Blood Urea Nitrogen 12 mg/dL (7-18); Bicarbonate 29 mmol/L (21-32); Bilirubin Total 0.3 mg/dL (0.2-1.0); Ferritin 657.5 ng/mL (26-388); Glucose Level 125 mg/dL (74-106); Magnesium 2.5 mg/dL (1.8-2.4); Potassium 4.2 mmol/L (3.5-5.1); Protein, Total 6.2 g/dL (6.4-8.2); Sodium Level 140 mmol/L (136-145)
[2020-08-07] MEDS: INSULIN -REGULAR HUMAN 50 UNIT/0.5 ML ML SQ SCH ×4 (07:30→20:24)
[2020-08-07] MEDS: ASCORBIC ACID 500 MG TABLET PO SCH ×3 (09:30→20:25)
[2020-08-07] MEDS: ENOXAPARIN 40 MG/0.4 ML SQ SCH (09:30)
[2020-08-07] MEDS: VITAMIN D 1000 UNIT TAB PO SCH (09:30)
[2020-08-07] MEDS: ZINC SULFATE 220 MG CAP PO SCH (09:30)
[2020-08-07] MEDS ORDERED: HYDRALAZINE HCL 20 MG/ML VIAL IV ONE (09:42)
[2020-08-07] MEDS ORDERED: HYDRALAZINE HCL 20 MG/ML VIAL ONE (10:06)
--- NOTE | 2020-08-07 16:54 | P.PN ---
Subjective Date of Service: 08/07/20 Chief Complaint: COVID pneumonia Subjective: Improving (More alert and awake this morning, feeling better, still with confusion) Review of Systems 10-point ROS is otherwise unremarkable Physical Examination - Vital Signs Temperature: 97.5 F Blood Pressure: 133/101 Pulse: 87 Respirations: 18 Pulse Ox (%): 97 - Physical Exam General: Alert, Oriented x2 Respiratory: Other (Slight tachypnea) Cardiovascular: No edema, Regular rate/rhythm Gastrointestinal: Soft and benign, Non-distended, No tenderness Musculoskeletal: No tenderness Integumentary: No rashes Neurological: Normal affect Assessment & Plan Physician Review Additional Text: COVID pneumonia Diabetes mellitus type 2 Altered mental status / lethargy Hypertension Schizophrenia Moderate mental retardation Plan COVID pneumonia: CRP improving, continue solumedrol, breathing comfortably at this time Pulmonology consult in place Daily room air saturations, wean off of oxygen. IV steroids, supplementations. DVT prophylaxis Lovenox 40 mg subcutaneous once daily. AMS / lethargy, acute metabolic encephalopathy unclear etiology, possibly from COVID pneumonia More alert this morning, still with mild drowsiness continue to monitor Diabetes mellitus type 2: A.c. HS Accu-Cheks, sliding scale insulin therapy. Hypertension: continue home medications Schizophrenia: continue home medications. Moderate mental retardation: Appears stable at this time. Dispo: anticipate dc back to skilled nursing tomorrow given improvement of mentation and CRP Time Spent Managing Pts Care (In Minutes): 35
[2020-08-08] MEDS: METHYLPREDNISOLONE 40 MG INJ IV SCH ×2 (00:18→08:51)
[2020-08-08 04:15] LABS: Basophils % 0.6 % (0-1.3); Hematocrit 36.4 % (39.6-49.0); Lymphocytes % 6.9 % (15.3-44.8); RBC Red Blood Cell Count 3.92 M/uL (4.33-5.43)
[2020-08-08 04:27] LABS: BUN Blood Urea Nitrogen 10 mg/dL (7-18); Bicarbonate 28 mmol/L (21-32); Glucose Level 124 mg/dL (74-106); Magnesium 2.6 mg/dL (1.8-2.4); Potassium 4.1 mmol/L (3.5-5.1); Sodium Level 141 mmol/L (136-145)
[2020-08-08 05:42] VITALS: BMI 31.2
[2020-08-08] MEDS: INSULIN -REGULAR HUMAN 50 UNIT/0.5 ML ML SQ SCH ×2 (07:30→11:30)
[2020-08-08 08:18] VITALS: BP 137/93; TEMP 97.3
[2020-08-08] MEDS: VITAMIN D 1000 UNIT TAB PO SCH (08:50)
[2020-08-08] MEDS: ASCORBIC ACID 500 MG TABLET PO SCH (08:51)
[2020-08-08] MEDS: ZINC SULFATE 220 MG CAP PO SCH (08:51)
[2020-08-08] MEDS: ENOXAPARIN 40 MG/0.4 ML SQ SCH (08:52)
[2020-08-08] MEDS ORDERED: OXcarbazepine 150 MG TAB PO SCH ×2 (09:00→21:00)
[2020-08-08] MEDS ORDERED: BENZTROPINE 1 MG TAB PO SCH (09:00)
[2020-08-08] MEDS ORDERED: PROPRANOLOL HCL 10 MG TAB PO SCH (09:00)
[2020-08-08] MEDS ORDERED: carvediloL 12.5 MG TAB PO SCH (09:00)
[2020-08-08] MEDS ORDERED: ZINC SULFATE 220 MG CAP PO SCH (09:00)
[2020-08-08] MEDS ORDERED: DIVALPROEX DR 500MG TAB PO SCH (09:00)
[2020-08-08] MEDS ORDERED: ILOPERIDONE 12 MG PO SCH (09:00)
[2020-08-08] MEDS ORDERED: DOCUSATE NA 100 MG CAP PO SCH (09:00)
[2020-08-08] MEDS ORDERED: THIAMINE HCL 100 MG TABLET PO SCH (09:00)
[2020-08-08 10:20] VITALS: O2SAT 96
--- NOTE | 2020-08-08 11:43 | P.DS ---
Admission Date: 08/06/20 Discharge Date: 08/08/20 Disposition: ROUTINE DISCHARGE Discharge Condition: GOOD Reason for Admission: COVID pneumonia Consultations: Pulmonology- Procedures: CXR (08/05): Lung volumes are low. Patchy airspace opacification present in the mid left lung field. Assessment is difficult due to the low lung volumes. Trachea is midline. Significant failure or volume overload are not suspected. Heart and vasculature are normal. No measurable pleural effusion and no pneumothorax. No acute bony abnormality seen. No acute aortic findings suspected. CTA chest (08/05): No pulmonary emboli identified. Numerous ground-glass opacities scattered in the lung lott.This is a bilateral pneumonia pattern suspicious for COVID-19 pneumonia in the current clinical environment. CT head (08/05): No acute intracranial finding identified. Brief History of Present Illness: 54yo male, PMH: mental disability, DM2, schizophrenia, tremors who was [facility] due to altered mental status. It was reported from the penitentiary that the patient "was not acting right" and more sleepy. Patient was diagnosed with COVID approximately 1 week ago. Patient was worked up in the emergency department and aside from appearing mildly dehydrated with a sodium 135 and mild elevation white blood cell count 11.3 his workup was unremarkable. ED staff ambulated patient down the [place] and he desaturated to 90% on room air and became moderately tachypneic. CRP came back elevated at 171. Hospital Course: The patient was admitted to the COVID unit. Pulmonology was consulted and he was treated with IV Solu-Medrol. His CRP was trended and improved (171 -> 48). His mentation also continued to improve and seemed to be at his baseline. He initially required up to 2 L nasal cannula, but was able to be weaned to room air on 08/06. On day of discharge, patient was alert and oriented x2, was able to converse difficult to shortness of breath, was tolerating a diet, and was breathing comfortably on room air. He is [facility], with a prescription for prednisone 20 mg daily x7 days, then 10 mg daily x7 days. Prescription for Eliquis 2.5 mg b.i.d. was also sent. Advised to take aspirin 81 mg if Eliquis is not covered by insurance. Vital Signs/Physical Exam: Temp Pulse Resp BP Pulse Ox 97.3 F 79 19 137/93 H 96 08/08/20 08:00 08/08/20 08:52 08/08/20 08:00 08/08/20 08:52 08/08/20 08:00 General: Alert, Oriented x2, Other (Mental disability, mild tremors) HEENT: Mucous membr. moist/pink, Sclerae nonicteric Neck: Supple Respiratory: Other (non-labored on RA) Cardiovascular: No edema, Regular rate/rhythm Gastrointestinal: Soft and benign, Non-distended, No tenderness Musculoskeletal: No tenderness Integumentary: No rashes Neurological: Other Laboratory Data at Discharge: WBC 14.6 K/uL (4.3-10.9) H D 08/08/20 03:46 Hgb 12.2 g/dL (13.6-17.9) L 08/08/20 03:46 Hct 36.4 % (39.6-49.0) L 08/08/20 03:46 Plt Count 463 K/uL (152-406) H 08/08/20 03:46 PT 13.7 SECONDS (9.5-12.5) H 08/05/20 17:00 INR 1.16 08/05/20 17:00 Sodium 141 mmol/L (136-145) 08/08/20 03:46 Potassium 4.1 mmol/L (3.5-5.1) 08/08/20 03:46 BUN 10 mg/dL (7-18) 08/08/20 03:46 Creatinine 0.55 mg/dL (0.55-1.3) 08/08/20 03:46 Glucose 124 mg/dL (74-106) H 08/08/20 03:46 Magnesium 2.6 mg/dL (1.8-2.4) H 08/08/20 03:46 Total Bilirubin 0.3 mg/dL (0.2-1.0) 08/07/20 03:35 AST 46 U/L (15-37) H 08/07/20 03:35 ALT 26 U/L (12-78) 08/07/20 03:35 Alkaline Phosphatase 43 U/L (45-117) L 08/07/20 03:35 Home Medications: Benztropine Mesylate 2 mg PO TID 01/18/18 Cholecalciferol (Vitamin D3) [Vitamin D3] 5,000 units PO DAILY 01/18/18 Divalproex Sodium [Depakote] 500 mg PO BID 01/18/18 Docusate [Colace Cap*] 100 mg PO BID 01/18/18 Iloperidone [Fanapt] 12 mg PO BID 01/18/18 Metformin ER [Glucophage ER*] 500 mg PO DAILY WITH BREAKFAST 01/18/18 Oxcarbazepine [Trileptal] 300 mg PO DAILY 01/18/18 Propranolol [Inderal*] 20 mg PO TID 01/18/18 Simvastatin 40 mg PO BEDTIME 01/18/18 Acetaminophen [Tylenol] 650 mg PO Q4HP PRN 07/30/20 Bifidobacterium Infantis [Align] 4 mg PO DAILY 07/30/20 Bisacodyl [Dulcolax] 5 mg PO M,W,F 07/30/20 Bismuth Subsalicylate [Bismatrol] 262 mg PO PRN PRN 07/30/20 Dextromethorphan HBr [Tussin Cough] 15 mg PO BID 07/30/20 Diphenhydramine [Benadryl*] 25 mg PO Q4HP PRN MDD 200 07/30/20 Divalproex Sodium 250 mg PO SEECOM 07/30/20 Guaifenesin [Diabetic Tussin Ex] 10 ml PO Q4HP PRN MDD 600 07/30/20 Loratadine [Claritin*] 10 mg PO DAILYPRN PRN MDD 10 07/30/20 Magnesium Hydroxide [Milk of Magnesia] 30 ml PO DAILYPRN PRN 07/30/20 Mometasone Furoate [Nasonex] 50 mcg NS DAILY 07/30/20 polyethylene glycoL 3350 [Polyethylene Glycol 3350] 17 gm PO TIDP PRN 07/30/20 Ascorbic Acid [Vitamin C*] 500 mg PO DAILY #14 tablet 08/01/20 Thiamine HCl [Vitamin B-1*] 100 mg PO DAILY #14 tablet 08/01/20 Zinc Sulfate [Zinc Sulfate*] 220 mg PO DAILY #14 cap 08/01/20 OXcarbazepine [Trileptal] 600 mg PO BEDTIME 08/06/20 carvediloL [Coreg*] 12.5 mg PO BID 08/06/20 Apixaban [Eliquis] 2.5 mg PO BID 30 Days #60 tablet 08/08/20 predniSONE [Deltasone*] 10 mg PO SEECOM 14 Days #21 tab 08/08/20 New Medications: predniSONE [Deltasone*] 10 mg PO SEECOM 14 Days #21 tab Apixaban [Eliquis] 2.5 mg PO BID 30 Days #60 tablet Patient Discharge Instructions: Follow up with PCP within 3-5 days. Follow up with pulmonology (Dr. Luong) in 1-2 weeks, call his office to schedule appointment. New prescriptions: Prednisone 10 mg tablet, take 2 tablets daily for 7 days, then take 1 tablet daily for 7 days. -- Eliquis (apixaban) 2.5mg tablet - take twice a day for at least 1 month (follow up with PCP or Dr. Luong). -- if the Eliquis is not covered by insurance, take aspirin 81mg daily. Otherwise, resume home medications Diet: ADA Activity: Ad zaid Followup: Walker Luong [ASSOCIATE-COURTESY - CAN ADMIT] - (call to schedule appointment) OOTMAURICE [Primary Care Provider] - (call to schedule appointment) Time spent managing pt's care (in minutes): 35
[2020-08-08] MEDS ORDERED: DIVALPROEX DR 250 MG TAB PO SCH (16:00)
[2020-08-08] MEDS ORDERED: HOME MED 1 EA UNK (Simvastatin [Simvastatin] 40 MG) PO SCH (21:00)
[2020-08-08] MEDS ORDERED: ATORVASTATIN 20 MG TAB PO SCH (21:00)
--- NOTE | 2020-08-09 07:54 | EKG ---
Test Date: 2020-08-05 Test Time: 17:27:22 Light Bulb Tester: DEY MEASUREMENT RESULTS: Intervals: Rate: 75 MO: 144 QRSD: 82 QT: 396 QTc: 442 [place]: P: 70 MO: 144 QRS: 66 T: 57 INTERPRETIVE STATEMENTS: Normal sinus rhythm Normal ECG Compared to ECG 07/29/2020 16:44:50 Myocardial infarct finding no longer present Electronically Signed On 08-09-20 07:42:38 ROLL OUT MANAGER by Rex Silva
[2020-08-10] MEDS ORDERED: BISACODYL E.C. 5 MG TAB PO SCH (17:00)
== END 2020-08-08 12:45 | disposition home or self-care (01) | DRG 177 ==
LOC: ER 14:14 → ERHOLD 20:12 → 3RD-ICU 21:06 → OBSVTOIN 08-06 13:42
PROVIDERS: ADMIT Hospitalist; ATTEND Hospitalist
DX: U07.1 COVID-19 (principal); J12.89 Other viral pneumonia; G93.41 Metabolic encephalopathy; E11.9 Type 2 diabetes mellitus without complications; I10 Essential (primary) hypertension; F25.9 Schizoaffective disorder, unspecified; K59.09 Other constipation; F71 Moderate intellectual disabilities; G20 Parkinson's disease; R09.02 Hypoxemia; Z88.8 Allergy status to other drugs, medicaments and biological substances; Z79.84 Long term (current) use of oral hypoglycemic drugs; Z79.01 Long term (current) use of anticoagulants; Z79.52 Long term (current) use of systemic steroids
CPT/HCPCS: 36415; 70450; 71045; 71275; 80048; 80053; 80076; 80307; 80320; 80329; 81003; 82728; 82805; 82947; 83605; 83735; 83880; 84484; 85025; 85610; 86140; 93005; 96374; 99285; J0360; J1100; J1650; J2920; J7030; Q9967

== ENCOUNTER 2020-09-10 | Emergency (ER) | payer OTHER ==
--- OUTSIDE RECORDS SUMMARY | 2020-09-10 08:14 | XMS REPORT | Continuity of Care Document ---
:1965 Author Organization [facility] t Address [address] [place] [address] Care Team Providers Name Role Phone District), Co [facility] Testing (Not Health Attending Clinician Lab, Fam [...] 2020-07-29 2020-07-29 Telephone District), CHRISTINE [id number] 00:00:00 00:00:00 [facility] [id number] [facility] [id number] Testing [phone] (Not Health 019 2020-07-27 2020-07-27 Laboratory Lab, [facility] [id number] 16:08:25 16:28:25 Only Fam [facility] [id number] [place] [id number] Professio [phone] nal [address] Results This patient has no known results.
--- NOTE | 2020-09-10 08:32 | EDPHYS ---
Physician Documentation [facility] Name: Erich Houser Jr Age: 54 yrs Sex: Male : 1965 Arrival Date: 09/10/2020 Time: 08:12 Bed 5 Private MD: ED Physician Yosef Valle HPI: 09/10 08:34 This 54 yrs old Black Male presents to ER via EMS with complaints of High Blood kdr Pressure. 08:34 The patient has elevated blood pressure and discovered this at home. Onset: The kdr symptoms/episode began/occurred this morning. Modifying factors: The symptoms are aggravated by Nothing - possibly a new nurse who was not familiar with the patient . Associated signs and symptoms: The patient has no apparent associated signs or symptoms. Severity of symptoms: At its worst the blood pressure was mild. It is unknown whether or not the patient has had similar symptoms in the past. The patient has not recently seen a physician. EMS was not entirely clear as to why the patient was being sent beyond elevated blood pressure. Historical: - Allergies: 08:13 Hydrochlorothiazide; rb3 - Home Meds: 08:13 DOXYCYLINE 20 mg 1 tab twice a day [Active]; Align 4 mg Oral cap daily [Active]; rb3 benztropine 2 mg Oral tab 1 tab 3 times per day [Active]; bisacodyl 5 mg Oral TbEC 1 tab three times weekly - [Active]; carvedilol 6.25 mg Oral tab 1 tab 2 times per day [Active]; divalproex 250 mg Oral Tb24 1 tabs once daily [Active]; divalproex sod DR-500mg 500 mg 1 tab twice a day [Active]; Fanapt 12 mg Oral tab 1 tab 2 times per day [Active]; loxapine succinate 25 mg Oral cap 1 cap every morning [Active]; metformin 500 mg Oral tab 1 tab daily [Active]; mometasone 50 mcg/actuation nasal spry 1 sprays once daily [Active]; oxcarbazepine 300 mg Oral tab 2 tabs 2 times per day [Active]; propranolol 20 mg Oral tab 1 tab 3 times per day [Active]; simvastatin 40 mg Oral tab 1 tab once daily [Active]; Stool Softner 100 mg 1 cap daily [Active]; - PMHx: 08:13 CONSTIPATION - CHRONIC; Depression; Diabetes - NIDDM; FACET ARTHRITIS; gingivitis; rb3 Hypertension; IMPULSE CONTROL DISORDER; LEGG-PERTHES DS; MODERATE MR; NEUROLEPTIC PARKSINSON'S; pseudobulbar affect; SCHIZOTYPAL PERSONALITY DISORDER; Seizures; - Immunization history:: Adult Immunizations up to date. - Social history:: Smoking status: Patient/guardian denies using. ROS: 08:34 Constitutional: Negative for fever, chills, and weight loss, Eyes: Negative for injury, kdr pain, redness, and discharge, Neck: Negative for injury, pain, and swelling, Cardiovascular: Negative for chest pain, palpitations, and edema, Respiratory: Negative for shortness of breath, cough, wheezing, and pleuritic chest pain, Abdomen/GI: Negative for abdominal pain, nausea, vomiting, diarrhea, and constipation, Back: Negative for injury and pain, MS/Extremity: Negative for injury and deformity, Skin: Negative for injury, rash, and discoloration, Neuro: Negative for headache, weakness, numbness, tingling, and seizure activity. Psych: Negative for depression, anxiety, suicide ideation, homicidal ideation, and hallucinations, Allergy/Immunology: Negative for hives, rash, and allergies, Endocrine: Negative for neck swelling, polydipsia, polyuria, polyphagia, and marked weight changes, Hematologic/Lymphatic: Negative for swollen nodes, abnormal bleeding, and unusual bruising. Exam: 08:34 Constitutional: This is a well developed, well nourished patient who is awake, alert, kdr and in no acute distress. Head/Face: Normocephalic, atraumatic. Eyes: Pupils equal round and reactive to light, extra-ocular motions intact. Lids and lashes normal. Conjunctiva and sclera are non-icteric and not injected. Cornea within normal limits. Periorbital areas with no swelling, redness, or edema. Neck: Trachea midline, no thyromegaly or masses palpated, and no cervical lymphadenopathy. Supple, full range of motion without nuchal rigidity, or vertebral point tenderness. No Meningismus. Chest/axilla: Normal chest wall appearance and motion. Nontender with no deformity. No lesions are appreciated. Cardiovascular: Regular rate and rhythm with a normal S1 and S2. No gallops, murmurs, or rubs. Normal PMI, no JVD. No pulse deficits. Respiratory: Lungs have equal breath sounds bilaterally, clear to auscultation and percussion. No rales, rhonchi or wheezes noted. No increased work of breathing, no retractions or nasal flaring. Abdomen/GI: Soft, non-tender, with normal bowel sounds. No distension or tympany. No guarding or rebound. No evidence of tenderness throughout. Back: No spinal tenderness. No costovertebral tenderness. Full range of motion. Skin: Warm, dry with normal turgor. Normal color with no rashes, no lesions, and no evidence of cellulitis. MS/ Extremity: Pulses equal, no cyanosis. Neurovascular intact. Full, normal range of motion. Psych: Awake, alert, with orientation to person, place and time. Behavior, mood, and affect are within normal limits. 08:34 Neuro: Orientation: is normal, Mentation: is normal, Motor: moves all fours, Sensation: is normal, no obvious gross deficits, Gait: not tested. Vital Signs: 08:13 BP 156 / 94; Pulse 71; Resp 17; Temp 97.0; Pulse Ox 98% ; Weight 94 kg (R); Height 5 rb3 ft. 2 in. (157.48 cm); Pain 0/10; 08:24 BP 134 / 88; Pulse 73; Resp 16; Pulse Ox 98% on R/A; Pain 0/10; rb3 08:42 BP 125 / 83; Pulse 70; Resp 17; Pulse Ox 96% ; rb3 09:40 BP 126 / 85; Pulse 65; Resp 16; Pulse Ox 99% ; Pain 0/10; rb3 08:13 Body Mass Index 37.90 (94.00 kg, 157.48 cm) rb3 MDM: 08:31 Patient medically screened. kdr 08:39 Data reviewed: vital signs, nurses notes, lab test result(s), radiologic studies. kdr Counseling: I had a detailed discussion with the patient and/or guardian regarding: the historical points, exam findings, and any diagnostic results supporting the discharge/admit diagnosis, lab results, radiology results, the need for outpatient follow up. ED course: Since the patient's BP was essentially normal and he had no complaints, the patient was given the option of no further treatment and discharge which he opted for.. Administered Medications: No medications were administered Disposition: 09/10/20 08:31 Discharged to Home. Impression: Hypertensive heart disease. - Condition is Stable. - Discharge Instructions: Hypertension, [id number]. - Medication Reconciliation Form, Thank You Letter form. - Follow up: Private Physician; When: 2 - 3 days; Reason: If symptoms return, Further diagnostic work-up, Recheck today's complaints, Continuance of care, Re-evaluation by your physician. - Problem is an acute exacerbation. - Symptoms are resolved. Signatures: Yosef Valle MD MD kdr Rekha Marcum RN RN rb3 Corrections: (The following items were deleted from the chart) 10:06 08:31 09/10/2020 08:31 Discharged to Home. Impression: Hypertensive heart disease. rb3 Condition is Stable. Forms are Medication Reconciliation Form, Thank You Letter, Antibiotic Education, Prescription Opioid Use. Follow up: Private Physician; When: 2 - 3 days; Reason: If symptoms return, Further diagnostic work-up, Recheck today's complaints, Continuance of care, Re-evaluation by your physician. Problem is an acute exacerbation. Symptoms are resolved. kdr
--- NOTE | 2020-09-10 08:32 | ER ---
Nurse's Notes [facility] Name: Erich Houser Jr Age: 54 yrs Sex: Male : 1965 Arrival Date: 09/10/2020 Time: 08:12 Bed 5 Private MD: Diagnosis: Hypertensive heart disease Presentation: 09/10 08:13 Chief complaint: EMS states: Pt. is from a [facility] at [address]. EMS was called rb3 out for BP 160/140. When EMS arrived on scene the pt. was a symptomatic and BP 167/89, P 82, O2 99% RA. Has a history of hypertension and intellectual disability. Coronavirus screen: At this time, the client does not indicate any symptoms associated with coronavirus-19. Ebola Screen: Patient denies travel to an Ebola-affected area in the 21 days before illness onset. Initial Sepsis Screen: Does the patient meet any 2 criteria? No. Patient's initial sepsis screen is negative. Does the patient have a suspected source of infection? No. Patient's initial sepsis screen is negative. Risk Assessment: Do you want to hurt yourself or someone else? Patient reports no desire to harm self or others. Onset of symptoms was September 10, 2020. 08:13 Method Of Arrival: EMS: [facility] rb3 08:13 Acuity: JIGNESH 3 rb3 Triage Assessment: 08:13 General: Appears in no apparent distress. comfortable, Behavior is calm, cooperative, rb3 Denies fever, feeling ill. Pain: Denies pain. Neuro: Level of Consciousness is awake, alert, obeys commands, Oriented to person, place, situation. Cardiovascular: Capillary refill < 3 seconds Patient's skin is warm and dry. Respiratory: Airway is patent Respiratory effort is even, unlabored, Respiratory pattern is regular, symmetrical. GI: No signs and/or symptoms were reported involving the gastrointestinal system. : No signs and/or symptoms were reported regarding the genitourinary system. 08:24 Neuro: Denies headache. Cardiovascular: Denies chest pain. Respiratory: Denies cough, rb3 shortness of breath. Historical: - Allergies: 08:13 Hydrochlorothiazide; rb3 - Home Meds: 08:13 DOXYCYLINE 20 mg 1 tab twice a day [Active]; Align 4 mg Oral cap daily [Active]; rb3 benztropine 2 mg Oral tab 1 tab 3 times per day [Active]; bisacodyl 5 mg Oral TbEC 1 tab three times weekly [Active]; carvedilol 6.25 mg Oral tab 1 tab 2 times per day [Active]; divalproex 250 mg Oral Tb24 1 tabs once daily [Active]; divalproex sod DR-500mg 500 mg 1 tab twice a day [Active]; Fanapt 12 mg Oral tab 1 tab 2 times per day [Active]; loxapine succinate 25 mg Oral cap 1 cap every morning [Active]; metformin 500 mg Oral tab 1 tab daily [Active]; mometasone 50 mcg/actuation nasal spry 1 sprays once daily [Active]; oxcarbazepine 300 mg Oral tab 2 tabs 2 times per day [Active]; propranolol 20 mg Oral tab 1 tab 3 times per day [Active]; simvastatin 40 mg Oral tab 1 tab once daily [Active]; Stool Softner 100 mg 1 cap daily [Active]; - PMHx: 08:13 CONSTIPATION - CHRONIC; Depression; Diabetes - NIDDM; FACET ARTHRITIS; gingivitis; rb3 Hypertension; IMPULSE CONTROL DISORDER; LEGG-PERTHES DS; MODERATE MR; NEUROLEPTIC PARKSINSON'S; pseudobulbar affect; SCHIZOTYPAL PERSONALITY DISORDER; Seizures; - Immunization history:: Adult Immunizations up to date. - Social history:: Smoking status: Patient/guardian denies using. Screenin:13 Abuse screen: Denies threats or abuse. Nutritional screening: No deficits noted. rb3 Tuberculosis screening: No symptoms or risk factors identified. Fall Risk None identified. Assessment: 08:13 General: See triage note. rb3 08:45 Reassessment: Called [facility] at [phone], left voice rb3 mail and requested a call back. 08:54 Reassessment: Patient appears in no apparent distress at this time. Patient and/or rb3 family updated on plan of care and expected duration. Pain level reassessed. Patient is alert, oriented x 3, equal unlabored respirations, skin warm/dry/pink. Patient denies pain at this time. 09:05 Reassessment: Called [phone], they gave me the [phone] to rb3 call regarding the pt. discharge. 09:11 Reassessment: Called [phone] left a voice mail and requested a call back. rb3 09:15 Reassessment: Discharge pending due to transportation. rb3 09:43 Reassessment: Patient appears in no apparent distress at this time. Patient and/or rb3 family updated on plan of care and expected duration. Pain level reassessed. Patient is alert, oriented x 3, equal unlabored respirations, skin warm/dry/pink. Patient denies pain at this time. 09:50 Reassessment: Gave report to [facility], all questions asked and answered. rb3 Vital Signs: 08:13 BP 156 / 94; Pulse 71; Resp 17; Temp 97.0; Pulse Ox 98% ; Weight 94 kg (R); Height 5 rb3 ft. 2 in. (157.48 cm); Pain 0/10; 08:24 BP 134 / 88; Pulse 73; Resp 16; Pulse Ox 98% on R/A; Pain 0/10; rb3 08:42 BP 125 / 83; Pulse 70; Resp 17; Pulse Ox 96% ; rb3 09:40 BP 126 / 85; Pulse 65; Resp 16; Pulse Ox 99% ; Pain 0/10; rb3 08:13 Body Mass Index 37.90 (94.00 kg, 157.48 cm) rb3 ED Course: 08:12 Patient arrived in ED. rb3 08:13 Patient has correct armband on for positive identification. Bed in low position. Call mh5 light in reach. Side rails up X2. Warm blanket given. Pulse ox on. NIBP on. 08:13 Arm band placed on right wrist. rb3 08:14 Yosef Valle MD is Attending Physician. kdr 08:16 Triage completed. rb3 08:23 Rekha Marcum, ELLIE is Primary Nurse. rb3 08:45 No provider procedures requiring assistance completed. Patient did not have IV access rb3 during this emergency room visit. Administered Medications: No medications were administered Outcome: 08:31 Discharge ordered by . kdr 08:45 Discharged to [facility] rb3 08:45 Condition: stable 08:45 Discharge instructions given to EMS, Instructed on discharge instructions, follow up and referral plans. Demonstrated understanding of instructions, follow-up care, Prescriptions given X none 10:06 Patient left the ED. rb3 Signatures: Yosef Valle MD MD kdr Martinez, [facility] Rekha Marcum RN RN rb3 Corrections: (The following items were deleted from the chart) 08:23 08:13 BP 156 / 94; Pulse 71bpm; Resp 17bpm; Pulse Ox 98%; Temp 97.0F; Pain 0/10; rb3 rb3 08:25 08:13 General: Appears in no apparent distress. comfortable, Behavior is calm, rb3 cooperative, Denies fever, feeling ill, rb3 08:44 08:13 Musculoskeletal: Range of motion: intact in all extremities, rb3 rb3 09:18 08:13 Musculoskeletal: Range of motion: Pt. is bed bound rb3 rb3
== END 2020-09-10 10:06 | disposition home or self-care (01) ==
CPT/HCPCS: 99283